=== PATIENT | female | born 1945 ===

== ENCOUNTER → 2017-11-21 | Outpatient (CLI) | payer MEDICARE ==
[~2017-11-21] MED LIST: ACET325 PO; ASPI325 PO; ASPI81CH PO; CEFD300 PO; CLOP75 PO; FISH1000 PO; GABA100 PO; GABA300 PO; HYDCHL25 PO; Humalog100 UNIT/1 SC; INSLIS75I; INSULANPEN SC; LEVEMIR FL100 UNIT/1 SQ; LISI20 PO; METO25ER; PRAV20 PO; TRAACE PO; TRAM50 PO; VITA25000 PO; VITAMIN E100 UNI1 PO; ZESTORETIC 20-121 EA; ZINC15 PO
== END ==
LOC: LAB 17:23 → LAB SHORT 17:23
DX: E11.65 Type 2 diabetes mellitus with hyperglycemia (principal)
CPT/HCPCS: 83036

== ENCOUNTER → 2018-03-04 | Outpatient (CLI) | payer MEDICARE | END | disposition home or self-care (01) | LOC: LAB SHORT 14:09 → PLD 14:09 | DX: C43.72 Malignant melanoma of left lower limb, including hip (principal) | CPT/HCPCS: 88305 ==

== ENCOUNTER → 2018-07-04 | Outpatient (CLI) | payer MEDICARE, OTHER ==
[~2018-07-04] MED LIST changes: +FURO40 PO; +LOSA25 PO; +POTA10T PO; +Percocet 5-3251 EACH PO
== END | disposition home or self-care (01) ==
LOC: LAB SHORT 18:41 → LAB 18:41
DX: Z48.3 Aftercare following surgery for neoplasm (principal); C43.72 Malignant melanoma of left lower limb, including hip
CPT/HCPCS: 87070; 87075; 87205

== ENCOUNTER 2018-07-10 06:17 | Day surgery (SDC) | payer MEDICARE, OTHER ==
[~2018-07-10] VITALS: Ht 162.6 cm; Wt 129.7 kg
[~2018-07-10 06:17] MED LIST changes: -FURO40 PO; -LOSA25 PO; -POTA10T PO; -Percocet 5-3251 EACH PO
--- NOTE | 2018-07-10 06:43 | NUR ---
PT ADMITTED TO [facility]. AGREES WITH PLANNED SURGER. MEDS, ALLERGIES AND HX REVIEWED.
--- NOTE | 2018-07-10 06:53 | NUR ---
LUNG SOUNDS CLEAR. DRESSING IN PLACE TO LEFT LOWER EXTREMEITY, D/I.
--- NOTE | 2018-07-10 10:02 | NUR ---
Discharge instructions reviewed with patient. Patient verbalizes understanding. Copy given to patient to take home. STERI STRIPS X2 PLACES ON RIGHT CHEST C/D/I, WITH VERY SCANT OOZE THAT HAS SCABBED OVER. PT STATES SHOULDER DISCOMFORT IS BETTER NOW AND VERBALIZED READY TO GET DRESSED AND GO HOME. RX GIVEN TO PT/FAMILY. Discharged via wheelchair to private car for ride home.
--- NOTE | 2018-07-10 10:32 | NUR ---
1024- CALLED PT TO INFORM HER TO RESTART HER PLAVIX AND ASA TOMORROW 07/11/[address] BUSTILLOS. PT VERBALIZES UNDERSTANDING.
== END 2018-07-10 10:08 | disposition home or self-care (01) ==
LOC: ORSCMMR 06:17 → ORD 07:30 → ORSCMMR 07:30
PROVIDERS: Surgery
PROC: 0JH60WZ Insertion of Totally Implantable Vascular Access Device into Chest Subcutaneous Tissue and Fascia, Open Approach (ICD-10-PCS; principal; 2018-07-10 07:30)
DX: C43.72 Malignant melanoma of left lower limb, including hip (principal); E11.9 Type 2 diabetes mellitus without complications; E78.5 Hyperlipidemia, unspecified; I10 Essential (primary) hypertension; Z79.82 Long term (current) use of aspirin; Z79.4 Long term (current) use of insulin; Z79.899 Other long term (current) drug therapy
CPT/HCPCS: 77001; 82947; C1788; J0690; J1642; J2250; J2405; J3010; J7120

== ENCOUNTER → 2018-08-05 | Outpatient (CLI) | payer MEDICARE, OTHER ==
[~2018-08-05] MED LIST changes: +FURO40 PO; +LOSA25 PO; +POTA10T PO; +Percocet 5-3251 EACH PO
== END | disposition home or self-care (01) ==
LOC: LAB 14:24 → LAB SHORT 14:24
DX: N39.0 Urinary tract infection, site not specified (principal)
CPT/HCPCS: 87077; 87086; 87186

== ENCOUNTER 2018-08-17 11:40 | Emergency (ER) | payer MEDICARE, OTHER ==
[~2018-08-17] VITALS: Ht 162.6 cm; Wt 129.3 kg
[~2018-08-17 11:40] MED LIST changes: -FURO40 PO; -LOSA25 PO; -POTA10T PO; -Percocet 5-3251 EACH PO
[2018-08-17] MEDS ORDERED: FURO40 PO (12:31)
[2018-08-17] MEDS ORDERED: POTA10T PO (12:31)
[2018-08-17] MEDS ORDERED: LOSA25 PO (12:31)
[2018-08-17 13:18] LABS: BASOPHILS ABSOLUTE AUTO 0.06 K/mm3 (0.00-0.23); BASOPHILS PERCENT AUTO 1 % (0-2); EOSINOPHILS ABSOLUTE AUTO 0.03 K/mm3 (0.00-0.68); EOSINOPHILS PERCENT AUTO 0 % (0-6); Hematocrit 43.1 % (33.0-51.0); Hemoglobin 13.6 g/dL (11.5-16.0); IMMATURE GRAN ABSOLUTE AUTO 0.03 K/mm3 (0.00-0.10); IMMATURE GRAN PERCENT AUTO 0 % (0-1); LYMPHOCYTES ABSOLUTE AUTO 1.89 K/mm3 (0.84-5.20); LYMPHOCYTES PERCENT AUTO 16 % (21-46); MONOCYTES ABSOLUTE AUTO 0.65 K/mm3 (0.16-1.47); MONOCYTES PERCENT AUTO 6 % (4-13); Mean Corpuscular HGB 28.5 pg (26.0-34.0); Mean Corpuscular HGB Conc 31.6 g/dL (31.5-36.5); Mean Corpuscular Volume 90 fL (80-100); Mean Platelet Volume 11.1 fL (9.1-12.4); NEUTROPHILS PERCENT AUTO 77 % (41-73); Platelet Count 194 K/mm3 (150-400); RDW Coefficient Variation 15.3 % (11.7-14.2); RDW Standard Deviation 50.7 fL (35.1-46.3); Red Blood Cell Count 4.77 M/mm3 (3.80-5.20); White Blood Cell Count 11.76 K/mm3 (4.00-11.30)
[2018-08-17 13:43] LABS: Albumin, Blood 3.2 g/dL (3.4-5.0); Bilirubin, Total 0.3 mg/dL (0.1-1.0); Bun/Creatinine Ratio 13.6 (12.0-20.0); Calcium, Blood 8.3 mg/dL (8.5-10.1); Creatinine, Blood 1.32 mg/dL (0.40-1.00); Globulin, Blood 3.1 g/dL (2.2-4.0); Potassium, Blood 3.9 mmol/L (3.5-5.5); Total Protein, Blood 6.3 g/dL (6.4-8.2)
[2018-08-17] MEDS ORDERED: Percocet 5-3251 EACH PO (14:05)
== END 2018-08-17 14:44 | disposition home or self-care (01) ==
LOC: ER 11:40
PROVIDERS: Physician Assistant
DX: S00.83XA Contusion of other part of head, initial encounter (principal); S40.011A Contusion of right shoulder, initial encounter; S80.02XA Contusion of left knee, initial encounter; S80.01XA Contusion of right knee, initial encounter; W19.XXXA Unspecified fall, initial encounter; E11.9 Type 2 diabetes mellitus without complications; I10 Essential (primary) hypertension; Z87.891 Personal history of nicotine dependence; Z79.899 Other long term (current) drug therapy; Z79.82 Long term (current) use of aspirin; Z79.4 Long term (current) use of insulin
CPT/HCPCS: 36415; 70450; 71046; 73030; 73560-LT; 73560-RT; 80053; 85025; 93005; 93010; J2405; J3010

== ENCOUNTER 2018-11-19 10:48 | Observation (INO) | payer MEDICARE, OTHER ==
[~2018-11-19] VITALS: Ht 160 cm; Wt 134.4 kg
[~2018-11-19 10:48] MED LIST changes: +FURO40 PO; -Humalog100 UNIT/1 SC; +LOSA50 PO; +Novolin R100 UNIT/M SC; +POTA10T PO; -PRAV20 PO; +Percocet 5-3251 EACH PO; +Pravachol40 MG PO; +Zithromax250 MG PO
[2018-11-19] MEDS ORDERED: ALBU90OI6 INH (12:03)
[2018-11-19] MEDS ORDERED: Fish Oil Conc1000 MG PO (12:04)
[2018-11-19 12:18] LABS: BASOPHILS ABSOLUTE AUTO 0.04 K/mm3 (0.00-0.23); BASOPHILS PERCENT AUTO 1 % (0-2); EOSINOPHILS ABSOLUTE AUTO 0.11 K/mm3 (0.00-0.68); EOSINOPHILS PERCENT AUTO 1 % (0-6); Hematocrit 43.6 % (33.0-51.0); Hemoglobin 13.6 g/dL (11.5-16.0); IMMATURE GRAN ABSOLUTE AUTO 0.03 K/mm3 (0.00-0.10); IMMATURE GRAN PERCENT AUTO 0 % (0-1); LYMPHOCYTES ABSOLUTE AUTO 2.36 K/mm3 (0.84-5.20); LYMPHOCYTES PERCENT AUTO 31 % (21-46); MONOCYTES ABSOLUTE AUTO 0.69 K/mm3 (0.16-1.47); MONOCYTES PERCENT AUTO 9 % (4-13); Mean Corpuscular HGB 28.8 pg (26.0-34.0); Mean Corpuscular HGB Conc 31.2 g/dL (31.5-36.5); Mean Corpuscular Volume 92 fL (80-100); Mean Platelet Volume 11.1 fL (9.1-12.4); NEUTROPHILS ABSOLUTE AUTO 4.37 K/mm3 (1.96-9.15); NEUTROPHILS PERCENT AUTO 58 % (41-73); Platelet Count 187 K/mm3 (150-400); RDW Coefficient Variation 15.3 % (11.7-14.2); RDW Standard Deviation 51.8 fL (35.1-46.3); Red Blood Cell Count 4.73 M/mm3 (3.80-5.20)
[2018-11-19 12:33] LABS: Alanine Aminotransfer (ALT/SGP 24 U/L (12-78); Albumin, Blood 3.2 g/dL (3.4-5.0); Alk Phos 154 U/L (50-136); Anion Gap 9 mmol/L (6-16); Aspartate Aminotrans (AST/SGOT 29 U/L (12-37); Bilirubin, Total 0.5 mg/dL (0.1-1.0); Blood Urea Nitrogen 13 mg/dL (8-24); CO2, Blood 25 mmol/L (21-32); Calcium, Blood 9.2 mg/dL (8.5-10.1); Chloride, Blood 107 mmol/L (98-108); Globulin, Blood 3.1 g/dL (2.2-4.0); Glomerular Filtration Rate 42 (60-); Glucose, Blood 118 mg/dL (70-99); Potassium, Blood 3.8 mmol/L (3.5-5.5); Sodium, Blood 141 mmol/L (136-145); Total Protein, Blood 6.3 g/dL (6.4-8.2); Troponin I <0.015 ng/mL (0.000-0.040)
[2018-11-19 12:46] LABS: Source, Urine Catheter
[2018-11-19 12:51] LABS: Bilirubin, Urine Neg (Neg); Blood, Urine 2+ (Neg); Glucose Qualitative, Urine Neg (Neg); Ketones, Urine 3+ (Neg); Leukocyte Esterase, Urine 2+ (Neg); Nitrite, Urine Neg (Neg); Protein, Urine 1+ (Neg); Specific Gravity, Urine 1.015 (1.003-1.022); Urobilinogen, Urine NORM (Normal)
[2018-11-19 13:03] LABS: Color, Urine Yellow (P-Yellow)
[2018-11-19 13:04] LABS: Appearance, Urine Hazy (Clear); Bacteria Rare /hpf; Red Blood Cells, Urine 0-2 /hpf (0-2); Squamous Epithelial Cells Few /hpf (Few)
[2018-11-21] MEDS ORDERED: TRAM50 PO (11:33)
[2018-11-21] MEDS ORDERED: MIRT15 PO (11:33)
== END 2018-11-21 17:13 | disposition home health service (06) ==
LOC: ER 10:48 → MEDS 10:49 → ENPENDDIS 11-21 11:24 → MEDS 11-21 17:13
PROVIDERS: Emergency Medicine; ADMIT Hospitalist
DX: R53.1 Weakness (principal); E86.0 Dehydration; C43.72 Malignant melanoma of left lower limb, including hip; E66.01 Morbid (severe) obesity due to excess calories; E78.5 Hyperlipidemia, unspecified; E11.22 Type 2 diabetes mellitus with diabetic chronic kidney disease; I12.9 Hypertensive chronic kidney disease with stage 1 through stage 4 chronic kidney disease, or unspecified chronic kidney disease; N18.3 Chronic kidney disease, stage 3 (moderate); E11.40 Type 2 diabetes mellitus with diabetic neuropathy, unspecified; M19.90 Unspecified osteoarthritis, unspecified site; M54.9 Dorsalgia, unspecified; G89.29 Other chronic pain; Z87.891 Personal history of nicotine dependence; Z79.82 Long term (current) use of aspirin; Z79.02 Long term (current) use of antithrombotics/antiplatelets; Z79.899 Other long term (current) drug therapy; Z68.43 Body mass index [BMI] 50.0-59.9, adult
CPT/HCPCS: 36415; 71046; 80053; 81001; 82947; 83690; 83880; 84443; 84484; 85025; 87086; 93005; 93010; 96360; 96361; 97110; 97162; 97530; 99285-25; J1642; J7030; J7120; P9612

== ENCOUNTER → 2018-11-28 | Outpatient (CLI) | payer MEDICARE, OTHER ==
[~2018-11-28] MED LIST changes: +ALBU90OI6 INH; +Fish Oil Conc1000 MG PO; +MIRT15 PO
== END | disposition home or self-care (01) ==
LOC: LAB SHORT 14:50 → LAB 14:50
DX: N39.0 Urinary tract infection, site not specified (principal)
CPT/HCPCS: 87077; 87086; 87186

== ENCOUNTER 2019-02-10 15:18 | Emergency (ER) | payer MEDICARE, OTHER ==
[~2019-02-10] VITALS: Ht 162.6 cm; Wt 129.3 kg
[~2019-02-10 15:18] MED LIST changes: -CLOP75 PO; -LOSA50 PO
[2019-02-10 15:39] LABS: BASOPHILS ABSOLUTE AUTO 0.07 K/mm3 (0.00-0.23); BASOPHILS PERCENT AUTO 1 % (0-2); EOSINOPHILS ABSOLUTE AUTO 0.17 K/mm3 (0.00-0.68); EOSINOPHILS PERCENT AUTO 2 % (0-6); Hematocrit 40.2 % (33.0-51.0); Hemoglobin 12.9 g/dL (11.5-16.0); IMMATURE GRAN ABSOLUTE AUTO 0.03 K/mm3 (0.00-0.10); IMMATURE GRAN PERCENT AUTO 0 % (0-1); LYMPHOCYTES ABSOLUTE AUTO 3.79 K/mm3 (0.84-5.20); LYMPHOCYTES PERCENT AUTO 40 % (21-46); MONOCYTES ABSOLUTE AUTO 0.75 K/mm3 (0.16-1.47); MONOCYTES PERCENT AUTO 8 % (4-13); Mean Corpuscular HGB 29.7 pg (26.0-34.0); Mean Corpuscular HGB Conc 32.1 g/dL (31.5-36.5); Mean Corpuscular Volume 92 fL (80-100); Mean Platelet Volume 11.2 fL (9.1-12.4); NEUTROPHILS ABSOLUTE AUTO 4.72 K/mm3 (1.96-9.15); NEUTROPHILS PERCENT AUTO 50 % (41-73); Platelet Count 176 K/mm3 (150-400); RDW Coefficient Variation 14.6 % (11.7-14.2); RDW Standard Deviation 49.9 fL (35.1-46.3); Red Blood Cell Count 4.35 M/mm3 (3.80-5.20); White Blood Cell Count 9.53 K/mm3 (4.00-11.30)
[2019-02-10 15:55] LABS: Bilirubin, Total 0.4 mg/dL (0.1-1.0); Bun/Creatinine Ratio 7.7 (12.0-20.0); Calcium, Blood 9.4 mg/dL (8.5-10.1); Creatinine, Blood 1.56 mg/dL (0.40-1.00); Globulin, Blood 3.1 g/dL (2.2-4.0); Potassium, Blood 3.9 mmol/L (3.5-5.5); Total Protein, Blood 6.1 g/dL (6.4-8.2)
== END 2019-02-10 18:14 | disposition home or self-care (01) ==
LOC: ER 15:18 → MEDS 16:10 → ER 18:14
PROVIDERS: Physician Assistant
DX: N95.0 Postmenopausal bleeding (principal); Z79.899 Other long term (current) drug therapy; Z79.82 Long term (current) use of aspirin; Z79.4 Long term (current) use of insulin; E11.9 Type 2 diabetes mellitus without complications; I10 Essential (primary) hypertension; Z87.891 Personal history of nicotine dependence
CPT/HCPCS: 36415; 74176; 80053; 85025; 99284-25

== ENCOUNTER → 2019-02-21 | Outpatient (CLI) | payer MEDICARE ==
[~2019-02-21] MED LIST changes: +AZIT250 PO; +BISA10S PR; +Bactrim Ds Tab1 EACH PO; +Bumetanide1 MG PO; +CLOP75 PO; +CVS DISPOSABLE399 ML PR; +DOK100 MG PO; +FAMO20 PO; +FLUC150A PO; +GABA300; +Humalog100 UNIT/3 SC; +LEVFLO500 PO; +LOSA25 PO; +LOSA50 PO; +LOSARTAN POTASS50 MG PO; +Loperamide2 MG PO; +Nystatin15 GM TOP; +OMEP20ER PO; +PROM25 PO; +Pedi-Dri 100,0060 GM TOP; +Phillips'400 MG/5 M PO; +Potassium Chlo20 ME1 PO; +Prozac20 MG PO; +SENN187 PO; +TYLENOL325 MG PO; +Ultram50 MG PO; +VENL75ER PO; +VENLAFAXINE HCL75 MG PO; +Ventolin/Prove6.7 GM INH
[2019-02-21 11:12] LABS: Source, Urine Clean Catch
[2019-02-21 14:41] LABS: Appearance, Urine Hazy (Clear); Bilirubin, Urine Neg (Neg); Blood, Urine Neg (Neg); Color, Urine Yellow (P-Yellow); Glucose Qualitative, Urine Neg (Neg); Ketones, Urine Neg (Neg); Leukocyte Esterase, Urine 2+ (Neg); Nitrite, Urine Neg (Neg); Protein, Urine Neg (Neg); Specific Gravity, Urine 1.015 (1.003-1.022); Urobilinogen, Urine NORM (Normal)
[2019-02-21 15:30] LABS: Bacteria Few /hpf; Calcium Oxalate Crystals Many /hpf; Red Blood Cells, Urine 0-2 /hpf (0-2); Squamous Epithelial Cells Mod /hpf (Few)
== END | disposition home or self-care (01) ==
LOC: LAB SHORT 11:10 → LAB 11:10
PROVIDERS: Hospitalist
DX: R30.0 Dysuria (principal)
CPT/HCPCS: 81001; 87077; 87086; 87186

== ENCOUNTER 2019-02-23 14:17 | Emergency (ER) | payer MEDICARE, OTHER ==
[~2019-02-23] VITALS: Ht 162.6 cm; Wt 127.0 kg
[~2019-02-23 14:17] MED LIST changes: -AZIT250 PO; -BISA10S PR; -Bactrim Ds Tab1 EACH PO; -Bumetanide1 MG PO; -CLOP75 PO; -CVS DISPOSABLE399 ML PR; -DOK100 MG PO; -FAMO20 PO; -FLUC150A PO; -GABA300; -Humalog100 UNIT/3 SC; -LEVFLO500 PO; -LOSA25 PO; -LOSA50 PO; -LOSARTAN POTASS50 MG PO; -Loperamide2 MG PO; -Nystatin15 GM TOP; -OMEP20ER PO; -PROM25 PO; -Pedi-Dri 100,0060 GM TOP; -Phillips'400 MG/5 M PO; -Potassium Chlo20 ME1 PO; -Prozac20 MG PO; -SENN187 PO; -TYLENOL325 MG PO; -Ultram50 MG PO; -VENL75ER PO; -VENLAFAXINE HCL75 MG PO; -Ventolin/Prove6.7 GM INH
[2019-02-23 14:54] LABS: BASOPHILS ABSOLUTE AUTO 0.07 K/mm3 (0.00-0.23); BASOPHILS PERCENT AUTO 1 % (0-2); EOSINOPHILS ABSOLUTE AUTO 0.14 K/mm3 (0.00-0.68); EOSINOPHILS PERCENT AUTO 1 % (0-6); Hematocrit 40.6 % (33.0-51.0); Hemoglobin 13.2 g/dL (11.5-16.0); IMMATURE GRAN ABSOLUTE AUTO 0.02 K/mm3 (0.00-0.10); IMMATURE GRAN PERCENT AUTO 0 % (0-1); LYMPHOCYTES PERCENT AUTO 27 % (21-46); MONOCYTES ABSOLUTE AUTO 1.06 K/mm3 (0.16-1.47); MONOCYTES PERCENT AUTO 9 % (4-13); Mean Corpuscular HGB 29.7 pg (26.0-34.0); Mean Corpuscular HGB Conc 32.5 g/dL (31.5-36.5); Mean Corpuscular Volume 91 fL (80-100); Mean Platelet Volume 11.1 fL (9.1-12.4); NEUTROPHILS PERCENT AUTO 62 % (41-73); Platelet Count 213 K/mm3 (150-400); RDW Coefficient Variation 15.6 % (11.7-14.2); RDW Standard Deviation 52.3 fL (35.1-46.3); Red Blood Cell Count 4.45 M/mm3 (3.80-5.20); White Blood Cell Count 11.69 K/mm3 (4.00-11.30)
[2019-02-23 15:12] LABS: Albumin, Blood 2.7 g/dL (3.4-5.0); Albumin/Globulin Ratio 0.8 (0.8-1.8); Bilirubin, Total 0.6 mg/dL (0.1-1.0); Bun/Creatinine Ratio 7.7 (12.0-20.0); Calcium, Blood 9.4 mg/dL (8.5-10.1); Creatinine, Blood 1.94 mg/dL (0.40-1.00); Globulin, Blood 3.2 g/dL (2.2-4.0); Potassium, Blood 4.1 mmol/L (3.5-5.5); Total Protein, Blood 5.9 g/dL (6.4-8.2)
[2019-02-23] MEDS ORDERED: PROM25 PO (19:36)
== END 2019-02-23 20:25 | disposition home or self-care (01) ==
LOC: ER 14:17
PROVIDERS: Emergency Medicine
DX: N39.0 Urinary tract infection, site not specified (principal); E86.0 Dehydration; R53.81 Other malaise; F32.9 Major depressive disorder, single episode, unspecified; E66.9 Obesity, unspecified; Z68.42 Body mass index [BMI] 45.0-49.9, adult; E11.9 Type 2 diabetes mellitus without complications; I10 Essential (primary) hypertension; Z87.891 Personal history of nicotine dependence; Z85.820 Personal history of malignant melanoma of skin; Z79.899 Other long term (current) drug therapy; Z79.02 Long term (current) use of antithrombotics/antiplatelets; Z79.4 Long term (current) use of insulin; Z79.82 Long term (current) use of aspirin
CPT/HCPCS: 36415; 51798; 74176; 80053; 83690; 85025; 93005; 93010; 96361; 96365; 96366; 99285-25; J0696; J7030

== ENCOUNTER 2019-02-28 18:17 | Inpatient (IN) | payer MEDICARE, OTHER ==
[~2019-02-28] VITALS: Ht 163 cm; Wt 123.1 kg
[~2019-02-28 18:17] MED LIST changes: +PROM25 PO
[2019-02-28 19:11] LABS: Source, Urine Clean Catch
[2019-02-28 19:12] LABS: BASOPHILS ABSOLUTE AUTO 0.03 K/mm3 (0.00-0.23); BASOPHILS PERCENT AUTO 0 % (0-2); EOSINOPHILS ABSOLUTE AUTO 0.11 K/mm3 (0.00-0.68); EOSINOPHILS PERCENT AUTO 1 % (0-6); Hematocrit 36.3 % (33.0-51.0); Hemoglobin 11.6 g/dL (11.5-16.0); IMMATURE GRAN ABSOLUTE AUTO 0.03 K/mm3 (0.00-0.10); IMMATURE GRAN PERCENT AUTO 0 % (0-1); LYMPHOCYTES ABSOLUTE AUTO 2.05 K/mm3 (0.84-5.20); LYMPHOCYTES PERCENT AUTO 26 % (21-46); MONOCYTES ABSOLUTE AUTO 0.94 K/mm3 (0.16-1.47); MONOCYTES PERCENT AUTO 12 % (4-13); Mean Corpuscular HGB 29.5 pg (26.0-34.0); Mean Corpuscular Volume 92 fL (80-100); Mean Platelet Volume 11.2 fL (9.1-12.4); NEUTROPHILS ABSOLUTE AUTO 4.89 K/mm3 (1.96-9.15); NEUTROPHILS PERCENT AUTO 61 % (41-73); Platelet Count 191 K/mm3 (150-400); RDW Coefficient Variation 15.4 % (11.7-14.2); RDW Standard Deviation 52.6 fL (35.1-46.3); Red Blood Cell Count 3.93 M/mm3 (3.80-5.20); White Blood Cell Count 8.05 K/mm3 (4.00-11.30)
[2019-02-28 19:16] LABS: Bilirubin, Urine Neg (Neg); Blood, Urine Neg (Neg); Glucose Qualitative, Urine Neg (Neg); Ketones, Urine 1+ (Neg); Leukocyte Esterase, Urine 1+ (Neg); Nitrite, Urine Neg (Neg); Protein, Urine 2+ (Neg); Urobilinogen, Urine NORM (Normal)
[2019-02-28 19:23] LABS: Appearance, Urine Hazy (Clear); Color, Urine Yellow (P-Yellow)
[2019-02-28 19:24] LABS: Amorphous Mod (0-Heavy); Bacteria Mod /hpf; Mucus Light (0-Heavy); Red Blood Cells, Urine Not Seen /hpf (0-2); Squamous Epithelial Cells Rare /hpf (Few); White Blood Cells, Urine 0-2 /hpf (0-5)
[2019-02-28 19:31] LABS: Alanine Aminotransfer (ALT/SGP 14 U/L (12-78); Albumin, Blood 2.5 g/dL (3.4-5.0); Albumin/Globulin Ratio 0.9 (0.8-1.8); Alk Phos 98 U/L (50-136); Anion Gap 9 mmol/L (6-16); Aspartate Aminotrans (AST/SGOT 24 U/L (12-37); Bilirubin, Total 0.5 mg/dL (0.1-1.0); Blood Urea Nitrogen 15 mg/dL (8-24); Bun/Creatinine Ratio 4.7 (12.0-20.0); CO2, Blood 27 mmol/L (21-32); Calcium, Blood 8.8 mg/dL (8.5-10.1); Chloride, Blood 98 mmol/L (98-108); Creatinine, Blood 3.18 mg/dL (0.40-1.00); Globulin, Blood 2.7 g/dL (2.2-4.0); Glomerular Filtration Rate 15 (60-); Glucose, Blood 123 mg/dL (70-99); Magnesium, Blood 2.3 mg/dL (1.6-2.4); Potassium, Blood 4.2 mmol/L (3.5-5.5); Sodium, Blood 134 mmol/L (136-145); Total Protein, Blood 5.2 g/dL (6.4-8.2); Troponin I <0.015 ng/mL (0.000-0.040)
[2019-02-28 20:27] LABS: PCO2 Arterial 44.3 mmHg (35-45); PO2 Arterial 106 mmHg (80-100); pH Blood Arterial 7.36 (7.35-7.45)
[2019-02-28] MEDS ORDERED: Bumetanide1 MG PO (20:54)
[2019-02-28] MEDS ORDERED: VENLAFAXINE HCL75 MG PO (20:54)
[2019-02-28] MEDS ORDERED: Potassium Chlo20 ME1 PO (20:55)
[2019-02-28] MEDS ORDERED: LOSA50 PO (20:57)
[2019-02-28] MEDS ORDERED: Novolin R100 UNIT/M SC (21:16)
[2019-03-01 05:35] LABS: BASOPHILS ABSOLUTE AUTO 0.03 K/mm3 (0.00-0.23); BASOPHILS PERCENT AUTO 1 % (0-2); EOSINOPHILS ABSOLUTE AUTO 0.15 K/mm3 (0.00-0.68); EOSINOPHILS PERCENT AUTO 2 % (0-6); Hemoglobin 11.1 g/dL (11.5-16.0); IMMATURE GRAN ABSOLUTE AUTO 0.04 K/mm3 (0.00-0.10); IMMATURE GRAN PERCENT AUTO 1 % (0-1); LYMPHOCYTES ABSOLUTE AUTO 1.83 K/mm3 (0.84-5.20); LYMPHOCYTES PERCENT AUTO 28 % (21-46); MONOCYTES ABSOLUTE AUTO 0.73 K/mm3 (0.16-1.47); MONOCYTES PERCENT AUTO 11 % (4-13); Mean Corpuscular HGB 28.8 pg (26.0-34.0); Mean Corpuscular HGB Conc 31.7 g/dL (31.5-36.5); Mean Corpuscular Volume 91 fL (80-100); NEUTROPHILS ABSOLUTE AUTO 3.78 K/mm3 (1.96-9.15); NEUTROPHILS PERCENT AUTO 58 % (41-73); Platelet Count 176 K/mm3 (150-400); RDW Coefficient Variation 15.6 % (11.7-14.2); RDW Standard Deviation 51.8 fL (35.1-46.3); Red Blood Cell Count 3.85 M/mm3 (3.80-5.20); White Blood Cell Count 6.56 K/mm3 (4.00-11.30)
[2019-03-01 05:59] LABS: Bun/Creatinine Ratio 4.6 (12.0-20.0); Calcium, Blood 8.6 mg/dL (8.5-10.1); Creatinine, Blood 3.26 mg/dL (0.40-1.00); Potassium, Blood 4.3 mmol/L (3.5-5.5)
--- NOTE | 2019-03-01 06:18 | NUR ---
SHIFT SUMMARY PT NEW ADMIT FROM ER TONIGHT. ARRIVED TO UNIT VIA STRETCHER, SLIDE TRANSFER WITH 4 STAFF REQUIRED. PT AND FAMILY REPORTS RECENT WEAKNESS AND FALLS AT HOME, HOME HEALTH RN SENT PT TO ER FOR HYPOTENSION. HOWEVER, BP HAS BEEN STABLE HERE. PT SENT UP ON 3L VIA NC, WEENED DOWN TO 1L VIA NC THIS AM. BASELINE RA. CBG 112 TONIGHT, LANTUS HELD. PT REPORTS POOR APPETITE AND RECENT "SIGNIFCANT" WEIGHT LOSS, GOES DAYS AT A TIME WITHOUT EATING. DIETARY CONSULT. PT FAMILY REPORTS THEY ARE UNABLE TO TAKE CARE OF PT AND NEED ASSISTANCE WITH PLACEMENT. SS CONSULT, PALLIATIVE CARE CONSULT. PT REPORTS SHE HAS BEEN UNABLE TO WALK FOR A FEW DAYS, "LEGS TURN TO MUSH WHEN I TRY TO GET UP AND I JUST FALL", PT/OT EVAL IS ORDERED. SCHNEIDER CATH IN PLACE IS PATENT AND DRAINING, PLACED BY MUSEUM EDUCATOR. NS RUNNING @ 75 ML/HR. WILL CONT TO MONITOR AND PROVIDE CARE UNTIL PRESUMED BY ONCOMING RN.
--- NOTE | 2019-03-01 18:40 | NUR ---
NO ACUTE CHANGES TO PATIENT. WAITING FOR PLACEMENT. PATIENT IS FRIENDLY WITH STAFF AND COOPERATIVE WITH ALL CARES. TRANSFERRED TO LIFT ROOM. HAS BEEN AT BEDSIDE THROUGH OUT THE DAY. REMAINS ON 1 L O2. CALL LIGHT WITHIN REACH.
--- NOTE | 2019-03-02 06:57 | NUR ---
SHIFT SUMMARY PT SLEPT T/O NIGHT. SCHNEIDER DRAINING. SO AT BEDSIDE T/O NIGHT. 1L O2 NC. CALL LIGHT IN REACH.
[2019-03-02 07:52] LABS: BASOPHILS ABSOLUTE AUTO 0.04 K/mm3 (0.00-0.23); BASOPHILS PERCENT AUTO 1 % (0-2); EOSINOPHILS PERCENT AUTO 3 % (0-6); Hematocrit 35.5 % (33.0-51.0); Hemoglobin 11.3 g/dL (11.5-16.0); IMMATURE GRAN ABSOLUTE AUTO 0.03 K/mm3 (0.00-0.10); IMMATURE GRAN PERCENT AUTO 0 % (0-1); LYMPHOCYTES ABSOLUTE AUTO 1.59 K/mm3 (0.84-5.20); LYMPHOCYTES PERCENT AUTO 22 % (21-46); MONOCYTES ABSOLUTE AUTO 0.81 K/mm3 (0.16-1.47); MONOCYTES PERCENT AUTO 11 % (4-13); Mean Corpuscular HGB 29.1 pg (26.0-34.0); Mean Corpuscular HGB Conc 31.8 g/dL (31.5-36.5); Mean Corpuscular Volume 92 fL (80-100); Mean Platelet Volume 10.6 fL (9.1-12.4); NEUTROPHILS ABSOLUTE AUTO 4.52 K/mm3 (1.96-9.15); NEUTROPHILS PERCENT AUTO 63 % (41-73); Platelet Count 189 K/mm3 (150-400); RDW Coefficient Variation 15.7 % (11.7-14.2); RDW Standard Deviation 52.6 fL (35.1-46.3); Red Blood Cell Count 3.88 M/mm3 (3.80-5.20); White Blood Cell Count 7.19 K/mm3 (4.00-11.30)
[2019-03-02 08:07] LABS: Bun/Creatinine Ratio 5.1 (12.0-20.0); Calcium, Blood 8.4 mg/dL (8.5-10.1); Creatinine, Blood 2.95 mg/dL (0.40-1.00); Potassium, Blood 4.2 mmol/L (3.5-5.5)
--- NOTE | 2019-03-02 15:19 | NUR ---
PATIENTS PORT WAS ACCESSED AND DEACCESSED FOR MONTHLY CLEANING PER PATIENT REQUEST AND DOCTOR ORDER. TOLERATED WELL .
--- NOTE | 2019-03-02 17:51 | NUR ---
PATIENTS FAMILY TALKED WITH NURSE THIS SHIFT AND EXPRESSED CONCERN THAT PATENT WAS "GIVING UP" AND IS DEPRESSED. SHE HAS APPEARED MORE CONFUSED AND OUT OF IT ACCOURDING TO THE PATIENTS FAMILY. THEY STATED SHE HAS BEEN "SEEING AND TALKING TO PEOPLE THAT ARENT HERE" THROUGH OUT THE SHIFT. THIS NURSE HAS NOT SEEN THIS BEHAVIOR BUT HAS NOTICED SHE IS MORE FLAT AFFECTED THAN THE PREVIOUS DAY. SHE IS RECEIVING ABX DAILY. PATIENT CONTINUES TO NEED TO BE ENCOURAGED TO EAT AND EVEN THEN OFTEN EATS ONLY VERY SMALL AMOUNTS. THIS NURSE HAS ENCOURAGED THE PATIENT TO EAT TO REGAIN HER STRENGTH NEEDED FOR HER REHAB. PATIENT HAS HAD NO COMPLAINTS OF PAIN, SOB, OR NVD.
--- NOTE | 2019-03-03 04:04 | NUR ---
03/03/19 0410 PT SLEEPING WELL WITH ARNOLDBA IN LOUNGE CHAIR NEXT TO HER. VITALS STABLE. AT BEGINNING OF SHIFT, AND PT UNHAPPY WITH "ALL THESE INTERUPTIONS" WHEN SHE IS SLEEPING. VOICED HIS FRUSTRATION AND REQUESTED LESS INTERUPTIONS DURING NIGHT. THUS PT NOT TURNED Q 2 HOURS TO ALLOW FOR MORE REST/SLEEP.
[2019-03-03 05:01] LABS: BASOPHILS ABSOLUTE AUTO 0.05 K/mm3 (0.00-0.23); BASOPHILS PERCENT AUTO 1 % (0-2); EOSINOPHILS ABSOLUTE AUTO 0.22 K/mm3 (0.00-0.68); EOSINOPHILS PERCENT AUTO 2 % (0-6); Hematocrit 34.8 % (33.0-51.0); Hemoglobin 11.3 g/dL (11.5-16.0); IMMATURE GRAN ABSOLUTE AUTO 0.03 K/mm3 (0.00-0.10); IMMATURE GRAN PERCENT AUTO 0 % (0-1); LYMPHOCYTES ABSOLUTE AUTO 1.95 K/mm3 (0.84-5.20); LYMPHOCYTES PERCENT AUTO 22 % (21-46); MONOCYTES ABSOLUTE AUTO 1.05 K/mm3 (0.16-1.47); MONOCYTES PERCENT AUTO 12 % (4-13); Mean Corpuscular HGB 29.1 pg (26.0-34.0); Mean Corpuscular HGB Conc 32.5 g/dL (31.5-36.5); Mean Corpuscular Volume 90 fL (80-100); Mean Platelet Volume 10.7 fL (9.1-12.4); NEUTROPHILS ABSOLUTE AUTO 5.79 K/mm3 (1.96-9.15); NEUTROPHILS PERCENT AUTO 64 % (41-73); Platelet Count 191 K/mm3 (150-400); RDW Coefficient Variation 15.5 % (11.7-14.2); RDW Standard Deviation 51.2 fL (35.1-46.3); Red Blood Cell Count 3.88 M/mm3 (3.80-5.20); White Blood Cell Count 9.09 K/mm3 (4.00-11.30)
[2019-03-03 05:39] LABS: Bun/Creatinine Ratio 5.1 (12.0-20.0); Calcium, Blood 8.3 mg/dL (8.5-10.1); Creatinine, Blood 2.97 mg/dL (0.40-1.00); Potassium, Blood 4.2 mmol/L (3.5-5.5)
--- NOTE | 2019-03-03 13:55 | NUR ---
LIFT PT UP TO THE CHAIR FOR LUNCH USING THE LIFT, PT UP IN THE CHAIR FOR ABOUT AN HOUR AND A HALF, NOW BACK IN THE BED USING THE LIFT
--- NOTE | 2019-03-03 15:07 | NUR ---
R KNEE PAIN PT C/O R KNEE PAIN AFTER WORKING WITH THERAPY, SPOKE WITH DR HEATH ABOUT IT, TYLENOL GIVEN, WILL CONT TO MONITOR
--- NOTE | 2019-03-03 17:05 | NUR ---
SUMMARY PT RESTING IN BED, SPOUSE AT THE BEDSIDE, PT HAS WORKED WITH PT/OT TODAY, PT HAS BEEN UP TO THE CHAIR WITH THE LIFT, PT SLEEPS WHEN LEFT ALONE, MED PER EMAR FOR R KNEE PAIN, POSSIBLE PLAN TO DC TO SNF TOMORROW, FAMILY IS AWARE, VSS, NO ACUTE CHANGES, WILL CONT TO MONITOR
--- NOTE | 2019-03-03 18:33 | NUR ---
Clinical Visit: Pt sleeps through visit. She doesn't stir with voice cue, and sancho doesn't want this RN to wake her. Spoke to Keith, pt's . He reports lack of appetite lately, although, previous palliative notes indicate that this was an issue in October of this year. He reports that she had a fall on Sunday and before this, she was eating better. Pt unable to walk, per Keith. She manages her own medications at home. He states that he is concerned about her medications and this was reviewed. He states that he is going to "make sure" she takes her Remeron tonight so that she will have a better night's rest. Attempted advance care planning. He states that he doesn't want to talk about anything other than pt getting better. He states, "I won't even think about that and I don't want to talk about it," [pt not recovering or not getting better.] Pt has 4 daughters and one son. One of the daughters lives here locally. He has children also, but their children are from different marriages. Will remain available. Keith does not display knowledge of pt's multiple health problems.
[2019-03-04 05:18] LABS: Bun/Creatinine Ratio 5.6 (12.0-20.0); Calcium, Blood 8.5 mg/dL (8.5-10.1); Creatinine, Blood 2.68 mg/dL (0.40-1.00); Potassium, Blood 3.9 mmol/L (3.5-5.5)
--- NOTE | 2019-03-04 07:53 | NUR ---
SHIFT SUMMARY: PATIENT RESTED WELL WITH SOME PAIN BUT HER FAMILY WANTS HER TO HAVE AN XRAY OF THE RIGHT KNEE WHERE SHE FELL AT HOME ALSO THEY NEED AN ORDER FOR VASELINE TO APPLY TO THE HEELING WOUND ON HER LLE. THEY SAID THE DR INSTRUCTED THEM TO USE VASELINE. PASSED THIS INFO TO THE DAY NURSE. BOTTOM LOOKS PINK WITH A SMALL HEALING AREA PEA SIZED ON THE TAIL BONE.
[2019-03-04] MEDS ORDERED: AZIT250 PO (10:52)
--- NOTE | 2019-03-04 11:04 | NUR ---
PT NOTED TO NOT HAVE A BM SINCE 02/24, PT WITH DECREASED MOBILITY AND VERY POOR APETITE. COLACE, SENNA, AND MOM GIVEN THUS FAR. SPOKE WITH DR HEATH WHO HAS ORDERED A FLEETS ENEMA NOW.
--- NOTE | 2019-03-04 11:04 | NUR ---
DR REES TO SEE PT, SPOKE WITH DR HEATH NO CONSULT PLACED FOR CABRERA AT THIS TIME. DR REES DID NOT SEE PT.
--- NOTE | 2019-03-04 11:11 | NUR ---
PT DAUGHTER AND SPOUSE AT BEDSIDE VOICING FRUSTRATION WITH PT'S OVERALL STATUS. THEY REPORT PT HAS BEEN SLEEPING AND LETHARGIC FOR THE PAST 2 MONTHS AND FEELS THAT NO ONE IS DOING ANYTING ABOUT IT. PT HAS VERY POOR APETITE AND NOT EATING AND HASNT BEEN PER FAMILY. CARE MANAGEMENT CAME IN AND GAVE A LIST OF PROVIDERS IN THE AREA ACCEPTING NEW PT'S. FAMILY WAS ALSO GIVEN A LIST OF RESOURCES IN THE AREA THEY ARE CONCERNED ABOUT HOW TO GET HER TO MEDICAL APPOINTMENTS.
--- NOTE | 2019-03-04 12:43 | NUR ---
PRN ENEMA GIVEN FOR NO BM. PT HAD RESULTS OF LIQUID STOOL WITH A SMALL HARD BM.
--- NOTE | 2019-03-04 12:48 | NUR ---
PT STARTED COUGHING WITH A SIP OF WATER WHILE IN BED. PT ABLE TO COUGH UP SOME OF THE WATER. SATS 91% ON RA. LUNGS CLEARED AFTER COUGHING MULTIPLE TIMES. WILL CONT TO MONITOR. NO DISTRESS NOTED.
--- NOTE | 2019-03-04 13:32 | NUR ---
DR HEATH CALLED FOR AN UPDATE, NOTIFIED HER OF SMALL BM POST ENEMA. PT TO D/C TO [facility] AT 1400. DR ALSO NOTIFIED OF PT COUGHING WHILE DRINKING WATER, PER DR HEATH PT NEEDS TO BE STRICT ASPIRATION PRECAUTIONS. PT IS DC'ING AT 1400. SCHNEIDER CATHETER TO STAY IN PLACE PER DR HEATH AND BLADDER TRAINING TO BE COMPLETED THERE.
--- NOTE | 2019-03-04 13:44 | NUR ---
REPORT CALLED TO EBEN AT [facility]. IV DC'D INTACT. PT NEEDS LOTS OF MOTIVATION AND ENCOURAGEMENT. I TRIED TO GET PT TO EAT MULTIPLE TIMES THIS SHIFT WELL FAMILY AND PT WOULD ONLY TAKE BITES, OFFERED DIFFERENT FOODS AND PT CONT TO REFUSE MEALS.
--- NOTE | 2019-03-04 14:09 | NUR ---
PT DC'D TO [facility] VIA [facility] W/C. DC'D AT 7738. SPOUSE AT BEDSIDE.
== END 2019-03-04 14:07 | disposition home or self-care (01) | DRG 682 ==
LOC: ER 18:17 → MEDS 20:59
PROVIDERS: Emergency Medicine; ADMIT Hospitalist
DX: N17.9 Acute kidney failure, unspecified (principal); J18.9 Pneumonia, unspecified organism; E87.1 Hypo-osmolality and hyponatremia; F33.1 Major depressive disorder, recurrent, moderate; Z68.43 Body mass index [BMI] 50.0-59.9, adult; Z79.82 Long term (current) use of aspirin; Z87.891 Personal history of nicotine dependence; E66.01 Morbid (severe) obesity due to excess calories; K59.00 Constipation, unspecified; R33.9 Retention of urine, unspecified; E78.5 Hyperlipidemia, unspecified; M19.90 Unspecified osteoarthritis, unspecified site; E11.40 Type 2 diabetes mellitus with diabetic neuropathy, unspecified; C43.70 Malignant melanoma of unspecified lower limb, including hip; E11.22 Type 2 diabetes mellitus with diabetic chronic kidney disease; B95.62 Methicillin resistant Staphylococcus aureus infection as the cause of diseases classified elsewhere; N18.3 Chronic kidney disease, stage 3 (moderate); I12.9 Hypertensive chronic kidney disease with stage 1 through stage 4 chronic kidney disease, or unspecified chronic kidney disease; Z79.4 Long term (current) use of insulin
CPT/HCPCS: 36415; 36600; 51702; 71046; 73562-RT; 80048; 80053; 81001; 82803; 82947; 83605; 83735; 83880; 84145; 84484; 85025; 87040; 87086; 93005; 93010; 94760; 96360-59; 97110; 97162; 97530; 99285-25; A9270; J0696; J1642; J7030

== ENCOUNTER 2019-03-09 15:35 | Inpatient (IN) | payer MEDICARE ==
[~2019-03-09] VITALS: Ht 162.6 cm; Wt 127.0 kg
[~2019-03-09 15:35] MED LIST changes: +AZIT250 PO; +Bumetanide1 MG PO; +LOSA50 PO; +Potassium Chlo20 ME1 PO; +VENLAFAXINE HCL75 MG PO
[2019-03-09 16:16] LABS: BASOPHILS ABSOLUTE AUTO 0.05 K/mm3 (0.00-0.23); BASOPHILS PERCENT AUTO 0 % (0-2); EOSINOPHILS ABSOLUTE AUTO 0.19 K/mm3 (0.00-0.68); EOSINOPHILS PERCENT AUTO 2 % (0-6); Hematocrit 32.8 % (33.0-51.0); Hemoglobin 10.7 g/dL (11.5-16.0); IMMATURE GRAN ABSOLUTE AUTO 0.03 K/mm3 (0.00-0.10); IMMATURE GRAN PERCENT AUTO 0 % (0-1); LYMPHOCYTES ABSOLUTE AUTO 2.63 K/mm3 (0.84-5.20); LYMPHOCYTES PERCENT AUTO 23 % (21-46); MONOCYTES ABSOLUTE AUTO 1.07 K/mm3 (0.16-1.47); MONOCYTES PERCENT AUTO 9 % (4-13); Mean Corpuscular HGB 29.6 pg (26.0-34.0); Mean Corpuscular HGB Conc 32.6 g/dL (31.5-36.5); Mean Corpuscular Volume 91 fL (80-100); Mean Platelet Volume 10.4 fL (9.1-12.4); NEUTROPHILS PERCENT AUTO 65 % (41-73); Platelet Count 264 K/mm3 (150-400); RDW Coefficient Variation 15.5 % (11.7-14.2); RDW Standard Deviation 51.7 fL (35.1-46.3); Red Blood Cell Count 3.62 M/mm3 (3.80-5.20); White Blood Cell Count 11.47 K/mm3 (4.00-11.30)
[2019-03-09 16:29] LABS: Albumin/Globulin Ratio 0.6 (0.8-1.8); Bilirubin, Total 0.4 mg/dL (0.1-1.0); Calcium, Blood 8.3 mg/dL (8.5-10.1); Creatinine, Blood 1.99 mg/dL (0.40-1.00); Globulin, Blood 3.1 g/dL (2.2-4.0); Potassium, Blood 3.6 mmol/L (3.5-5.5); Total Protein, Blood 5.1 g/dL (6.4-8.2)
[2019-03-09 16:37] LABS: Source, Urine Catheter
[2019-03-09 16:47] LABS: Bilirubin, Urine Neg (Neg); Blood, Urine 3+ (Neg); Glucose Qualitative, Urine Neg (Neg); Ketones, Urine Neg (Neg); Leukocyte Esterase, Urine 3+ (Neg); Nitrite, Urine Neg (Neg); Protein, Urine 1+ (Neg); Urobilinogen, Urine NORM (Normal)
[2019-03-09 17:14] LABS: Appearance, Urine Hazy (Clear); Color, Urine Yellow (P-Yellow)
[2019-03-09] MEDS ORDERED: Ultram50 MG PO (17:16)
[2019-03-09 17:17] LABS: White Blood Cells, Urine 25-50 /hpf (0-5)
[2019-03-09] MEDS ORDERED: INSULANPEN SC (17:18)
[2019-03-09 17:19] LABS: Bacteria Mod /hpf; Red Blood Cells, Urine Not Seen /hpf (0-2); Squamous Epithelial Cells Few /hpf (Few); Yeast/Fungi Urine Mod /hpf
[2019-03-09] MEDS ORDERED: OMEP20ER PO (17:19)
[2019-03-09] MEDS ORDERED: Nystatin15 GM TOP (17:19)
[2019-03-09] MEDS ORDERED: DOK100 MG PO (17:19)
[2019-03-09] MEDS ORDERED: Prozac20 MG PO (17:19)
[2019-03-09] MEDS ORDERED: VENL75ER PO (17:20)
[2019-03-09] MEDS ORDERED: Bumetanide1 MG PO (17:21)
[2019-03-09] MEDS ORDERED: GABA300 PO (17:23)
[2019-03-09] MEDS ORDERED: LOSARTAN POTASS50 MG PO (17:24)
[2019-03-09] MEDS ORDERED: Potassium Chlo20 ME1 PO (17:24)
[2019-03-09] MEDS ORDERED: CLOP75 PO (17:41)
[2019-03-09] MEDS ORDERED: BISA10S PR (17:42)
[2019-03-09] MEDS ORDERED: Humalog100 UNIT/3 SC (17:44)
[2019-03-09] MEDS ORDERED: Phillips'400 MG/5 M PO (17:46)
[2019-03-09] MEDS ORDERED: MIRT15 PO (17:46)
[2019-03-09] MEDS ORDERED: SENN187 PO (17:46)
[2019-03-09] MEDS ORDERED: Ventolin/Prove6.7 GM INH (17:47)
[2019-03-09] MEDS ORDERED: ACET325 PO (17:48)
[2019-03-09] MEDS ORDERED: TYLENOL325 MG PO (17:49)
[2019-03-09] MEDS ORDERED: CVS DISPOSABLE399 ML PR (17:50)
--- NOTE | 2019-03-10 04:32 | NUR ---
Jade replacement. Tried to replace jade per protocol for patient coming from longterm. refused. stated the his doctor told him that the catheter does not have to be replaced. Will wait until further clarification from MD in am.
--- NOTE | 2019-03-10 07:48 | NUR ---
CALLED DOCTOR IS BEING PAGED. PT BP IS 77/33. AWAITING ORDERS. WILL ASK TO HOLD BUMEX AND COZAR MORNING MEDS.
--- NOTE | 2019-03-10 07:55 | NUR ---
CALLED 'S CELL LEFT MESSAGE RE PT'S BP 77/33
[2019-03-10 09:15] LABS: Bun/Creatinine Ratio 6.3 (12.0-20.0); Calcium, Blood 8.3 mg/dL (8.5-10.1); Creatinine, Blood 1.89 mg/dL (0.40-1.00); Potassium, Blood 3.3 mmol/L (3.5-5.5)
[2019-03-10 09:40] LABS: BASOPHILS ABSOLUTE AUTO 0.06 K/mm3 (0.00-0.23); BASOPHILS PERCENT AUTO 1 % (0-2); EOSINOPHILS ABSOLUTE AUTO 0.29 K/mm3 (0.00-0.68); EOSINOPHILS PERCENT AUTO 3 % (0-6); Hematocrit 35.2 % (33.0-51.0); Hemoglobin 11.2 g/dL (11.5-16.0); IMMATURE GRAN ABSOLUTE AUTO 0.05 K/mm3 (0.00-0.10); IMMATURE GRAN PERCENT AUTO 1 % (0-1); LYMPHOCYTES ABSOLUTE AUTO 2.95 K/mm3 (0.84-5.20); LYMPHOCYTES PERCENT AUTO 27 % (21-46); MONOCYTES ABSOLUTE AUTO 0.76 K/mm3 (0.16-1.47); MONOCYTES PERCENT AUTO 7 % (4-13); Mean Corpuscular HGB 28.5 pg (26.0-34.0); Mean Corpuscular HGB Conc 31.8 g/dL (31.5-36.5); Mean Corpuscular Volume 90 fL (80-100); Mean Platelet Volume 10.6 fL (9.1-12.4); NEUTROPHILS ABSOLUTE AUTO 6.84 K/mm3 (1.96-9.15); NEUTROPHILS PERCENT AUTO 63 % (41-73); Platelet Count 286 K/mm3 (150-400); RDW Coefficient Variation 15.6 % (11.7-14.2); RDW Standard Deviation 51.2 fL (35.1-46.3); Red Blood Cell Count 3.93 M/mm3 (3.80-5.20); White Blood Cell Count 10.95 K/mm3 (4.00-11.30)
--- NOTE | 2019-03-10 10:21 | NUR ---
CALLED HOSPITALIST LEFT MESSAGE INFORMING HER OF GRAM POSITIVE BLOOD CULTURES
[2019-03-10 12:39] LABS: Source, Urine Catheter
[2019-03-10 12:50] LABS: Bilirubin, Urine Neg (Neg); Blood, Urine 5+ (Neg); Glucose Qualitative, Urine Neg (Neg); Ketones, Urine Neg (Neg); Leukocyte Esterase, Urine 3+ (Neg); Nitrite, Urine Neg (Neg); Protein, Urine 2+ (Neg); Specific Gravity, Urine 1.015 (1.003-1.022); Urobilinogen, Urine NORM (Normal)
[2019-03-10 13:00] LABS: Appearance, Urine Hazy (Clear); Color, Urine Yellow (P-Yellow); Red Blood Cells, Urine 50-100 /hpf (0-2); Squamous Epithelial Cells Few /hpf (Few)
[2019-03-10 13:01] LABS: Amorphous Mod (0-Heavy); Bacteria Few /hpf; Mucus Mod (0-Heavy); Yeast/Fungi Urine Few /hpf
--- NOTE | 2019-03-10 16:50 | NUR ---
SHIFT SUMMARY HEALTH DIRECTOR REPORTED A LOW BP THIS MORNING, REPORTED SHE HAD RE-TAKEN BP TO BE SURE. I DID CALL THE HOSPITALIST. PT ASYMPTOMATIC. PT RECOVERED A NORMAL BP QUICKLY. WE DID HOLD BP MEDS AND DIURETIC. CHANGED SCHNEIDER CATHETER AND RETRIEVED A NEW UA SAMPLE, AWAITING RESULTS. I DID DISCOVER A PRESSURE ULCER ON THE LEFT BUTTOCK, I PHOTOGRAPHED THIS AND PLACED A MEPILEX ON SITE. ALL CONSENTS SIGNED AND IN CHART. PHOTO IN CHART. PT VERY WEAK, BEDRIDDEN AT THIS TIME. SHE HAD TWO LOOSE BOWEL MOVEMENTS TODAY. SHE IS A&O X4 AND CAN STATE HER NEEDS.
--- NOTE | 2019-03-11 04:52 | NUR ---
SHIFT SUMMARY: 74 Y/O OBESE FEMALE RESTED COMFORTABLY ALL SHIFT WITH SPOUSE AT SIDE IN RECLINER CHAIR, NO NEUROLOGICAL DEFICITS NOTED, FOLLOWING ALL SIMPLE VERBAL COMMANDS, SCHNEIDER DRAINING CLEAR YELLOW FLUID, PENDING POSSIBLE TRANSFER TO [facility] SOMETIME, DENIES PAIN OR NAUSEA, BED ALARM APPLIED, BED LOW POSITION, CALL LIGHT AT SIDE.
[2019-03-11 05:44] LABS: BASOPHILS ABSOLUTE AUTO 0.05 K/mm3 (0.00-0.23); BASOPHILS PERCENT AUTO 1 % (0-2); EOSINOPHILS ABSOLUTE AUTO 0.42 K/mm3 (0.00-0.68); EOSINOPHILS PERCENT AUTO 5 % (0-6); Hemoglobin 10.6 g/dL (11.5-16.0); IMMATURE GRAN ABSOLUTE AUTO 0.03 K/mm3 (0.00-0.10); IMMATURE GRAN PERCENT AUTO 0 % (0-1); LYMPHOCYTES ABSOLUTE AUTO 2.36 K/mm3 (0.84-5.20); LYMPHOCYTES PERCENT AUTO 28 % (21-46); MONOCYTES ABSOLUTE AUTO 0.59 K/mm3 (0.16-1.47); MONOCYTES PERCENT AUTO 7 % (4-13); Mean Corpuscular HGB 29.2 pg (26.0-34.0); Mean Corpuscular HGB Conc 32.1 g/dL (31.5-36.5); Mean Corpuscular Volume 91 fL (80-100); Mean Platelet Volume 10.3 fL (9.1-12.4); NEUTROPHILS ABSOLUTE AUTO 5.03 K/mm3 (1.96-9.15); NEUTROPHILS PERCENT AUTO 59 % (41-73); Platelet Count 288 K/mm3 (150-400); RDW Coefficient Variation 15.5 % (11.7-14.2); RDW Standard Deviation 51.8 fL (35.1-46.3); Red Blood Cell Count 3.63 M/mm3 (3.80-5.20); White Blood Cell Count 8.48 K/mm3 (4.00-11.30)
[2019-03-11 06:02] LABS: Bun/Creatinine Ratio 6.3 (12.0-20.0); Calcium, Blood 7.9 mg/dL (8.5-10.1); Creatinine, Blood 1.9 mg/dL (0.40-1.00); Potassium, Blood 3.4 mmol/L (3.5-5.5)
--- NOTE | 2019-03-11 17:49 | NUR ---
NO ACUTE CHANGES. WORKED WITH PT THIS SHIFT. AT BEDSIDE.
--- NOTE | 2019-03-12 04:34 | NUR ---
SHIFT SUMMARY: 74 Y/O OBESE FEMALE RESTED COMFORTABLY ALL SHIFT, SPOUSE SPENT NIGHT IN LOUNGE CHAIR AND VERY SUPPORTIVE, ALERT AND ORIENTED X 4, SCHNEIDER DRAINING CLEAR YELLOW FLUID, BED ALARM APPLIED, BED LOW POSITION, CALL LIGHT AT SIDE.
[2019-03-12 04:52] LABS: BASOPHILS ABSOLUTE AUTO 0.04 K/mm3 (0.00-0.23); BASOPHILS PERCENT AUTO 1 % (0-2); EOSINOPHILS ABSOLUTE AUTO 0.41 K/mm3 (0.00-0.68); EOSINOPHILS PERCENT AUTO 6 % (0-6); Hematocrit 33.3 % (33.0-51.0); Hemoglobin 10.7 g/dL (11.5-16.0); IMMATURE GRAN ABSOLUTE AUTO 0.04 K/mm3 (0.00-0.10); IMMATURE GRAN PERCENT AUTO 1 % (0-1); LYMPHOCYTES ABSOLUTE AUTO 2.65 K/mm3 (0.84-5.20); LYMPHOCYTES PERCENT AUTO 36 % (21-46); MONOCYTES PERCENT AUTO 7 % (4-13); Mean Corpuscular HGB 29.2 pg (26.0-34.0); Mean Corpuscular HGB Conc 32.1 g/dL (31.5-36.5); Mean Corpuscular Volume 91 fL (80-100); NEUTROPHILS ABSOLUTE AUTO 3.64 K/mm3 (1.96-9.15); NEUTROPHILS PERCENT AUTO 50 % (41-73); Platelet Count 293 K/mm3 (150-400); RDW Coefficient Variation 15.5 % (11.7-14.2); RDW Standard Deviation 51.8 fL (35.1-46.3); Red Blood Cell Count 3.66 M/mm3 (3.80-5.20); White Blood Cell Count 7.28 K/mm3 (4.00-11.30)
[2019-03-12 05:12] LABS: Bun/Creatinine Ratio 4.9 (12.0-20.0); Creatinine, Blood 1.82 mg/dL (0.40-1.00); Potassium, Blood 3.2 mmol/L (3.5-5.5)
[2019-03-12] MEDS ORDERED: LOSA25 PO (10:04)
[2019-03-12] MEDS ORDERED: FAMO20 PO (10:04)
[2019-03-12] MEDS ORDERED: FLUC150A PO (10:06)
[2019-03-12] MEDS ORDERED: GABA100 PO (10:06)
--- NOTE | 2019-03-12 15:02 | NUR ---
PATIENT TO DISCHARGE BACK TO [facility]. THIS NURSE CALLED REPORT AND TALKED WITH XAVIER. LAVERN DEACCESSED PREVIOULSY IN THE DAY. PATIENT HAD BM SO WAS CHANGED BEFORE TRANSPORT. FAMILY WAS PRESENT. THIS NURSE WENT OVER ALL THE MEDS AND PROCEDURES THAT WOULD BE NEEDED AT [facility] WITH DANELLE, THE .
--- NOTE | 2019-03-12 16:30 | NUR ---
Spoke with nurse Janina. Pt discharging. Reviewed with Janina. Pt's is persistantly trying to get his to walk, which, apparently pt doesn't have the desire to do. Pt very high risk for readmission, given her decline in the past months. She has multiple ER visits and multiple admissions. has refused to speak to palliative care about advanced care planning in the last two admissions, insisting that pt will never be a DNR/DNI. Will remain available for future consultations if needed. appears to have poor insight, lower education level, and will not allow for conversation regarding code status.
--- NOTE | 2019-03-13 05:09 | NUR ---
[facility] CALLED TO FIND OUT WHEN SCHNEIDER WAS PLACED
== END 2019-03-12 15:22 | DRG 689 ==
LOC: ER 15:35 → MEDS 18:03 → ENPENDDIS 03-12 10:00 → MEDS 03-12 15:22
PROVIDERS: Hospitalist; Internal Medicine; ADMIT Family Medicine
DX: N39.0 Urinary tract infection, site not specified (principal); G93.41 Metabolic encephalopathy; Z68.43 Body mass index [BMI] 50.0-59.9, adult; N18.4 Chronic kidney disease, stage 4 (severe); E11.22 Type 2 diabetes mellitus with diabetic chronic kidney disease; I12.9 Hypertensive chronic kidney disease with stage 1 through stage 4 chronic kidney disease, or unspecified chronic kidney disease; Z87.891 Personal history of nicotine dependence; Z79.4 Long term (current) use of insulin; F32.9 Major depressive disorder, single episode, unspecified; R33.9 Retention of urine, unspecified; E11.40 Type 2 diabetes mellitus with diabetic neuropathy, unspecified; E66.01 Morbid (severe) obesity due to excess calories
CPT/HCPCS: 36415; 70450; 71045; 80048; 80053; 81001; 82947; 83605; 85025; 87040; 87086; 87106; 97110; 97162; 97530; 99285-25; A9270; J0696; J1642; J1650; J7040; J7050; J7120

== ENCOUNTER 2019-03-31 17:20 | Inpatient (IN) | payer MEDICARE ==
[~2019-03-31] VITALS: Ht 152.4 cm; Wt 129.0 kg
[~2019-03-31 17:20] MED LIST changes: +BISA10S PR; +CLOP75 PO; +CVS DISPOSABLE399 ML PR; +DOK100 MG PO; +FAMO20 PO; +FLUC150A PO; +Humalog100 UNIT/3 SC; +LOSA25 PO; +LOSARTAN POTASS50 MG PO; +Nystatin15 GM TOP; +OMEP20ER PO; +Phillips'400 MG/5 M PO; +Prozac20 MG PO; +SENN187 PO; +TYLENOL325 MG PO; +Ultram50 MG PO; +VENL75ER PO; +Ventolin/Prove6.7 GM INH
[2019-03-31 17:54] LABS: BASOPHILS ABSOLUTE AUTO 0.02 K/mm3 (0.00-0.23); BASOPHILS PERCENT AUTO 0 % (0-2); EOSINOPHILS ABSOLUTE AUTO 0.63 K/mm3 (0.00-0.68); EOSINOPHILS PERCENT AUTO 7 % (0-6); Hematocrit 33.6 % (33.0-51.0); Hemoglobin 10.8 g/dL (11.5-16.0); IMMATURE GRAN ABSOLUTE AUTO 0.02 K/mm3 (0.00-0.10); IMMATURE GRAN PERCENT AUTO 0 % (0-1); LYMPHOCYTES ABSOLUTE AUTO 1.37 K/mm3 (0.84-5.20); LYMPHOCYTES PERCENT AUTO 16 % (21-46); MONOCYTES ABSOLUTE AUTO 0.86 K/mm3 (0.16-1.47); MONOCYTES PERCENT AUTO 10 % (4-13); Mean Corpuscular HGB 29.6 pg (26.0-34.0); Mean Corpuscular HGB Conc 32.1 g/dL (31.5-36.5); Mean Corpuscular Volume 92 fL (80-100); Mean Platelet Volume 10.7 fL (9.1-12.4); NEUTROPHILS ABSOLUTE AUTO 5.68 K/mm3 (1.96-9.15); NEUTROPHILS PERCENT AUTO 66 % (41-73); Platelet Count 167 K/mm3 (150-400); RDW Coefficient Variation 17.3 % (11.7-14.2); RDW Standard Deviation 58.4 fL (35.1-46.3); Red Blood Cell Count 3.65 M/mm3 (3.80-5.20); White Blood Cell Count 8.58 K/mm3 (4.00-11.30)
[2019-03-31 17:56] LABS: Source, Urine Clean Catch
[2019-03-31 18:10] LABS: Bilirubin, Urine Neg (Neg); Blood, Urine 3+ (Neg); Glucose Qualitative, Urine Neg (Neg); Ketones, Urine Neg (Neg); Leukocyte Esterase, Urine 3+ (Neg); Nitrite, Urine Neg (Neg); Protein, Urine 2+ (Neg); Specific Gravity, Urine 1.015 (1.003-1.022); Urobilinogen, Urine NORM (Normal)
[2019-03-31] MEDS ORDERED: LOSA25 PO (18:16)
[2019-03-31 18:17] LABS: Albumin, Blood 2.3 g/dL (3.4-5.0); Albumin/Globulin Ratio 0.8 (0.8-1.8); Bilirubin, Total 0.5 mg/dL (0.1-1.0); Bun/Creatinine Ratio 7.6 (12.0-20.0); Calcium, Blood 8.2 mg/dL (8.5-10.1); Creatinine, Blood 2.78 mg/dL (0.40-1.00); Globulin, Blood 2.9 g/dL (2.2-4.0); Potassium, Blood 3.6 mmol/L (3.5-5.5); Total Protein, Blood 5.2 g/dL (6.4-8.2)
[2019-03-31] MEDS ORDERED: GABA300 (18:17)
[2019-03-31] MEDS ORDERED: SENN187 PO (18:29)
[2019-03-31] MEDS ORDERED: INSULANPEN SC (18:34)
[2019-03-31 18:49] LABS: Appearance, Urine Cloudy (Clear); Color, Urine Yellow (P-Yellow)
[2019-03-31 18:53] LABS: Bacteria Many /hpf; Squamous Epithelial Cells Few /hpf (Few); White Blood Cells, Urine TNTC /hpf (0-5)
[2019-03-31] MEDS ORDERED: Bactrim Ds Tab1 EACH PO (22:05)
--- NOTE | 2019-04-01 01:46 | NUR ---
PROVIDER DR BARNEY CALLED REGARDING PT'S CBG'S, PORT, AND BP. ORDERS TO ALLOW PORT ACCESS FOR FLUIDS RECEIVED. PROVIDER UPDATED ON PT'S CBG'S, PT WAS HYPOGLYCEMIN IN ED WAS GIVEN OJ AND HILDA TO 80'S. MOST RECENT BACK TO 62 CBG. OJ GIVEN X1 CUP, PROVIDER ORDERED 1 AMP OF D50 AND TO MONITOR AFTER THAT. PROVIDER NOTIFIED THAT SYSTOLIC BP'S HAVE REMINED IN THE 90'S DESPITE A 1L NS BOLUS AND FLUIDS INFUSING @Q00ML/HR. 500ML BOLUS ORDER PLACED.
[2019-04-01 04:22] LABS: BASOPHILS ABSOLUTE AUTO 0.01 K/mm3 (0.00-0.23); BASOPHILS PERCENT AUTO 0 % (0-2); EOSINOPHILS ABSOLUTE AUTO 0.55 K/mm3 (0.00-0.68); EOSINOPHILS PERCENT AUTO 9 % (0-6); Hematocrit 30.9 % (33.0-51.0); IMMATURE GRAN ABSOLUTE AUTO 0.03 K/mm3 (0.00-0.10); IMMATURE GRAN PERCENT AUTO 1 % (0-1); LYMPHOCYTES ABSOLUTE AUTO 0.96 K/mm3 (0.84-5.20); LYMPHOCYTES PERCENT AUTO 15 % (21-46); MONOCYTES ABSOLUTE AUTO 0.52 K/mm3 (0.16-1.47); MONOCYTES PERCENT AUTO 8 % (4-13); Mean Corpuscular HGB 29.3 pg (26.0-34.0); Mean Corpuscular HGB Conc 32.4 g/dL (31.5-36.5); Mean Corpuscular Volume 91 fL (80-100); Mean Platelet Volume 11.5 fL (9.1-12.4); NEUTROPHILS ABSOLUTE AUTO 4.31 K/mm3 (1.96-9.15); NEUTROPHILS PERCENT AUTO 68 % (41-73); Platelet Count 166 K/mm3 (150-400); RDW Coefficient Variation 17.3 % (11.7-14.2); Red Blood Cell Count 3.41 M/mm3 (3.80-5.20); White Blood Cell Count 6.38 K/mm3 (4.00-11.30)
[2019-04-01 04:45] LABS: Albumin, Blood 2.1 g/dL (3.4-5.0); Albumin/Globulin Ratio 0.8 (0.8-1.8); Bilirubin, Total 0.5 mg/dL (0.1-1.0); Bun/Creatinine Ratio 8.1 (12.0-20.0); Calcium, Blood 7.7 mg/dL (8.5-10.1); Creatinine, Blood 2.7 mg/dL (0.40-1.00); Globulin, Blood 2.7 g/dL (2.2-4.0); Potassium, Blood 3.8 mmol/L (3.5-5.5); Total Protein, Blood 4.8 g/dL (6.4-8.2)
--- NOTE | 2019-04-01 07:53 | NUR ---
END OF SHIFT SUMMARY PT TO UNIT FROM ED, DROWSY, HOTN, HYPOGLUCEMIA. PROVIDER CALLED, SEE PROVIDER NOTE. 70'S NSR. BP HAS STAYED 90'S SYSTOLICALLY WITH OCCASIONAL MOST RECENT SYSTOLIC BP 130'S. LAST LAB CBG STABLE. MEDIPORT ACCESSED AND DRESSED, FLUIDS RUNNING @100. PT MORE ORIENTED NOW VERSUS ADMIT. L LEG WOUND PIC IN CHART FROM [facility]. ADMISSION PACKET COMPLETED. HAS BEEN AT BEDSIDE T/O NIGHT. PT IS NOW RESPONDING APPROPRIATELY TO QUESTIONS. PT CONTINUES ON 1 - 2L NC, SPO2 >94%. PT HAS BEEN RESTING FOR MAJORITY OF SHIFT. THIS RN AND INSURANCE COORDINATOR CHRISTOFER FARRELL HAVE SPENT MUCH TIME IN ROOM, MANAGING BP AND CBG'S. BED IN LOWEST POSITION. REPORT GIVEN TO ONCOMING RN.
--- NOTE | 2019-04-01 18:38 | NUR ---
SHIFT SUMMARY PT RESTING IN BED THROUGHOUT THE DAY. VSS EXCEPT FOR A FEW LOW BPs, PT ASYMPTOMATIC. ALERT AND ORIENTED X3, SLOW TO RESPOND, BUT FOLLOWING COMMANDS APPROPRIATELY. LUNG SOUNDS CLEAR, DIMINISHED BASES. C/O PAIN OFF AND ON TODAY, MEDICATED WITH PRN TYLENOL AND REPOSITIONED FOR COMFORT. PT INCONTINENT OF URINE THROUGHOUT THE DAY. EXTREMITIES WEAK THROUGHOUT, PT VERY WEAK WITH TURNS, BUT STAFF ENCOURAGED PT TO HELP WITH REPOSITIONING. 1+ PITTING EDEMA TO BLE. REDNESS / SCABS NOTED TO L BUTT AND REDNESS TO ELOY AREA, CREAM APPLIED PER PT REQUEST. IV FLUIDS TO RIGHT MEDIPORT, DRSG CDI. NSR WITH PVC RATE 76 PER TELEMETRY. AT BEDSIDE OFF AND ON TODAY. WILL CONTINUE TO MONITOR.
[2019-04-02 04:34] LABS: BASOPHILS ABSOLUTE AUTO 0.01 K/mm3 (0.00-0.23); BASOPHILS PERCENT AUTO 0 % (0-2); EOSINOPHILS ABSOLUTE AUTO 0.74 K/mm3 (0.00-0.68); EOSINOPHILS PERCENT AUTO 11 % (0-6); Hemoglobin 9.9 g/dL (11.5-16.0); IMMATURE GRAN ABSOLUTE AUTO 0.02 K/mm3 (0.00-0.10); IMMATURE GRAN PERCENT AUTO 0 % (0-1); LYMPHOCYTES ABSOLUTE AUTO 1.55 K/mm3 (0.84-5.20); LYMPHOCYTES PERCENT AUTO 22 % (21-46); MONOCYTES ABSOLUTE AUTO 0.38 K/mm3 (0.16-1.47); MONOCYTES PERCENT AUTO 6 % (4-13); Mean Corpuscular HGB 29.8 pg (26.0-34.0); Mean Corpuscular HGB Conc 31.9 g/dL (31.5-36.5); Mean Corpuscular Volume 93 fL (80-100); Mean Platelet Volume 11.2 fL (9.1-12.4); NEUTROPHILS ABSOLUTE AUTO 4.27 K/mm3 (1.96-9.15); NEUTROPHILS PERCENT AUTO 61 % (41-73); Platelet Count 163 K/mm3 (150-400); RDW Coefficient Variation 17.6 % (11.7-14.2); RDW Standard Deviation 59.5 fL (35.1-46.3); Red Blood Cell Count 3.32 M/mm3 (3.80-5.20); White Blood Cell Count 6.97 K/mm3 (4.00-11.30)
[2019-04-02 04:52] LABS: Albumin, Blood 1.9 g/dL (3.4-5.0); Albumin/Globulin Ratio 0.7 (0.8-1.8); Bilirubin, Total 0.4 mg/dL (0.1-1.0); Bun/Creatinine Ratio 7.4 (12.0-20.0); Calcium, Blood 7.4 mg/dL (8.5-10.1); Creatinine, Blood 2.29 mg/dL (0.40-1.00); Globulin, Blood 2.8 g/dL (2.2-4.0); Potassium, Blood 3.4 mmol/L (3.5-5.5); Total Protein, Blood 4.7 g/dL (6.4-8.2)
--- NOTE | 2019-04-02 06:17 | NUR ---
SUMMARY: ADMIT DAY [address] HEATH SERVICE. VSS, AFEBRILE, ROOM AIR. PT REMAINS A&O X3-4 WITH AT BEDSIDE. 2-3 EDEMA IN ABD, HIPS, BLE. MOVES FAIR WITH LOTS OF ENCOURAGEMENT AND POSITIVE REINFORCEMENT. ENCOURAGE ROM AND PT/OT. SPOUSE STATES PT USES [place] LIFT AT BASELINE AT [facility].
--- NOTE | 2019-04-02 19:43 | NUR ---
SHIFT SUMMARY PCU TRANSFER THIS AFTERNOON. PATIENT DENIES PAIN, NAUSEA, AND SHORTNESS OF BREATH. PATIENT STATES SHE CANNOT BEAR WEIGHT AT THIS TIME. AT BEDSIDE. CALL LIGHT IN REACH.
--- NOTE | 2019-04-03 03:49 | NUR ---
SHIFT SUMMARY PT ADMITTED FOR ENCEPHALOPATHY. SHE HAS A MEDIPORT IN THE RIGHT CHEST WALL. SHE TAKES HER MEDICATIONS WHOLE AND IS ON NASAL CANNULA. SHE HAS HAD HER LEGS ELEVATED THROUGHOUT THE NIGHT. SHE IS ON A ADA DIET AND IS A LIFT TRANSFER. SHE HAS APPEARED TO REST COMFORTABLY THROUGHOUT THE NIGHT. WILL CONTINUE TO MONITOR.
[2019-04-03 05:33] LABS: Albumin, Blood 1.9 g/dL (3.4-5.0); Albumin/Globulin Ratio 0.6 (0.8-1.8); Bilirubin, Total 0.4 mg/dL (0.1-1.0); Bun/Creatinine Ratio 8.1 (12.0-20.0); Calcium, Blood 7.6 mg/dL (8.5-10.1); Creatinine, Blood 1.97 mg/dL (0.40-1.00); Potassium, Blood 3.5 mmol/L (3.5-5.5); Total Protein, Blood 4.9 g/dL (6.4-8.2)
--- NOTE | 2019-04-03 12:53 | NUR ---
[facility] visit conducted. Patient is lying in bed and alert with no on present in the room. Patient openly shares that she is hallucinating at the time of the visit and is seeing the floor on the cieling but everything else is normal. Patient is able to tell me where she is and her name and the names of her family. I affirm that some things are solid for her. Patient tells me of her Restorationism jc and that God is her source of strength along with her family. Patient tells me that she has concerns about ever recovering from this weakness. We explore sources of hope and meaning. I listen enpathically and provide pastoral executive assistant to general counsel and prayer. I will continue to remain available to patient and family.
--- NOTE | 2019-04-04 00:58 | NUR ---
SHIFT SUMMARY NO ACUTE CHANGES WITH THIS PT TONIGHT. SHE HAS APPEARED TO REST COMFORTABLY WITH AT BEDSIDE/ WILL CONTINUE TO MONITOR.
[2019-04-04 05:41] LABS: Bun/Creatinine Ratio 7.7 (12.0-20.0); Calcium, Blood 7.9 mg/dL (8.5-10.1); Creatinine, Blood 1.68 mg/dL (0.40-1.00); Potassium, Blood 3.3 mmol/L (3.5-5.5)
--- NOTE | 2019-04-04 17:12 | NUR ---
SHIFT SUMMARY MORE CONFUSED TODAY. LIFT PATIENT. CXR SHOWED BILATERAL PNEUMONIA. GENERALIZED EDEMA. LIVES AT [facility] WITH . UNABLE TO TOLERATE SITTING IN CHAIR. NEW ANTIBIOTICS ADMINISTERED TODAY. MEDIPORT TO RIGHT CW HEP FLUSH DIRECTED. CBG'S AC AND HS. PLAN TO GO TO [facility].
--- NOTE | 2019-04-04 18:34 | NUR ---
PT AWAKENED EASILY WITH VERBAL STIMULI STATES "I THINK I'M FEELING BETTER I'M JUST SO TIRED TODAY" [facility]. TURNED ONTO RIGHT SIDE VIA LIFT. ATTENDS CHANGED. PT AWAKE TAKING SIPS OF WATER.
[2019-04-05 05:36] LABS: BASOPHILS ABSOLUTE AUTO 0.03 K/mm3 (0.00-0.23); BASOPHILS PERCENT AUTO 0 % (0-2); EOSINOPHILS ABSOLUTE AUTO 0.83 K/mm3 (0.00-0.68); EOSINOPHILS PERCENT AUTO 12 % (0-6); Hematocrit 32.1 % (33.0-51.0); Hemoglobin 10.1 g/dL (11.5-16.0); Mean Corpuscular HGB 29.6 pg (26.0-34.0); Mean Corpuscular HGB Conc 31.5 g/dL (31.5-36.5); Mean Corpuscular Volume 94 fL (80-100); Mean Platelet Volume 10.4 fL (9.1-12.4); Platelet Count 196 K/mm3 (150-400); RDW Coefficient Variation 17.3 % (11.7-14.2); RDW Standard Deviation 59.7 fL (35.1-46.3); Red Blood Cell Count 3.41 M/mm3 (3.80-5.20); White Blood Cell Count 7.13 K/mm3 (4.00-11.30)
[2019-04-05 05:37] LABS: IMMATURE GRAN ABSOLUTE AUTO 0.05 K/mm3 (0.00-0.10); IMMATURE GRAN PERCENT AUTO 1 % (0-1); LYMPHOCYTES ABSOLUTE AUTO 3.14 K/mm3 (0.84-5.20); LYMPHOCYTES PERCENT AUTO 44 % (21-46); MONOCYTES ABSOLUTE AUTO 0.55 K/mm3 (0.16-1.47); MONOCYTES PERCENT AUTO 8 % (4-13); NEUTROPHILS ABSOLUTE AUTO 2.53 K/mm3 (1.96-9.15); NEUTROPHILS PERCENT AUTO 36 % (41-73)
[2019-04-05 06:11] LABS: Albumin, Blood 1.9 g/dL (3.4-5.0); Albumin/Globulin Ratio 0.6 (0.8-1.8); Bilirubin, Total 0.3 mg/dL (0.1-1.0); Calcium, Blood 8.3 mg/dL (8.5-10.1); Creatinine, Blood 1.66 mg/dL (0.40-1.00); Magnesium, Blood 1.8 mg/dL (1.6-2.4); Potassium, Blood 3.5 mmol/L (3.5-5.5); Total Protein, Blood 4.9 g/dL (6.4-8.2)
--- NOTE | 2019-04-05 06:27 | NUR ---
SHIFT SUMMARY PT HAD SOME BACK PAIN AND WAS MEDICATED PER EMAR. PT PRESENT AND STAYED NIGHT WITH PT. PT WAS FATIGUED AT BEGINNING OF SHIFT BUT ALERT. THIS AM PT WAS LETHARGIC AND CONFUSED. PT CBG WAS CHECKED AND WAS WNL. PT HAD SOME COUGHING NOTED WITH NO PRODUCTION. PT ALERTNESS INCREASED AFTER CHANGING AND REPOSITIONING. PT HAS BEEN SLEEPING T/O SHIFT. PT CURRENTLY SLEEPING. CALL LIGHT IN REACH.
--- NOTE | 2019-04-05 17:24 | NUR ---
Shift Summary A/O to self and family. Pleasant and cooperative with care; however does not call appropriately. Pt seems to be constantly fatigued t/o day. Turn/Reposition x 2-3 assist. Tele: Sinus Robin @ 59 c 1st degree block. L/S: crackles at bilateral bases. NO other acute changes this shift.
--- NOTE | 2019-04-06 02:49 | NUR ---
PT continues 3 max assist with toileting. She is incontinent of urine and unable to assist with turns or lifting to have attends changed. Appetitie very poor, albumin is low. Has lesion lt anterior leg that is large and crusted. DX of metastatic melanoma lt le extremity. PT continues weak and confused. Spouse at bedside. PT has rt chest wall mediport, tko for iv zosyn Q 8 hours. Continues on 2 l nc for hypoxia. PT has full code status, has seen pallative care. Denies acute pain. Urine culture grew out lactobacillis, has yeasty smell on nystatin to skin folds. Edema present skin care to areas of moisture provided.
--- NOTE | 2019-04-06 11:58 | NUR ---
Physician notified Dr. Valdes notified RE patient's inquiring about IV nutrition. Pt is tolerating PO well, but just doesn't have an appetitie. Per physician, pt is tolerating PO well so no need for IV nutrition.
--- NOTE | 2019-04-06 14:04 | NUR ---
Incentive Spirometer This RN educated pt on operating the IS. Teach-back method was employed and successful. Pt able to demonstrate back.
--- NOTE | 2019-04-06 17:12 | NUR ---
Shift Summary A/O to self, family, situation, and place. Pleasant and cooperative with care. DRY CLEANER and RN assisted with transferring pt to recliner, pt tolerated for less than 1 hour and wanted to be back in bed. has been at bedside t/o. Incentive spirometer at bedside, this RN has been encouraging to use. Pt has been on RA and saturating at 94%. No c/o pain, nausea, or vomiting. Denies SOB. No other acute changes this shift.
--- NOTE | 2019-04-06 17:54 | NUR ---
Oxygen Weaning Status This RN rechecked O2 saturations on RA, it was 86-87%. 1L O2 via NC applied. Saturations now 96-97%.
--- NOTE | 2019-04-07 04:22 | NUR ---
SUMMARY: PT A/OX4 BUT RESISTANT TO CARE/ADL'S AND REMAINED AT BEDSIDE FOR ENCOURAGEMENT. SHE'S A LIFT AND 3+P MAX ASSIST FOR REPOSITIONING AND ATTENDS CHANGES. PT IS INCONTINENT OF URINE BUT ALERTS STAFF IF BEDPAN NEEDED FOR BM'S. SHE TOOK SENOKOT BUT HAD NO BM THIS SHIFT. TURN SCHEDULE MAINTAINED AND SKIN CARE PROVIDED PRN. NYSTATIN APPLIED TO ELOY AREA AND SKIN FOLDS. SHE IS OBESE W/GENERAL ANASARCA APPEARANCE. BUE AND BLE'S ELEVATED ON PILLOWS. RN HELD HS LANTUS FOR CBG 83, PT LACKING APPETITE AND REFUSING PRN MN SNACK. R.CW MEDIPORT IS ACCESSED AND INFUSES AT TKO BETWEEN IV ABX. SHE REMAINS S.CANDY/ NSR PER TELEMETRY AT 50'S-60'S BPM AND IS ON 1L O2 VIA NC W/INABILITY TO TITRATE OFF W/O DESATS. NO ACUTE CHANGES, VSS/AFEBRILE. WCTM/REPORT TO DAY RN.
[2019-04-07 05:54] LABS: BASOPHILS ABSOLUTE AUTO 0.08 K/mm3 (0.00-0.23); BASOPHILS PERCENT AUTO 1 % (0-2); EOSINOPHILS ABSOLUTE AUTO 0.53 K/mm3 (0.00-0.68); EOSINOPHILS PERCENT AUTO 7 % (0-6); Hematocrit 33.7 % (33.0-51.0); Hemoglobin 10.4 g/dL (11.5-16.0); IMMATURE GRAN ABSOLUTE AUTO 0.17 K/mm3 (0.00-0.10); IMMATURE GRAN PERCENT AUTO 2 % (0-1); LYMPHOCYTES ABSOLUTE AUTO 3.28 K/mm3 (0.84-5.20); LYMPHOCYTES PERCENT AUTO 45 % (21-46); MONOCYTES ABSOLUTE AUTO 0.65 K/mm3 (0.16-1.47); MONOCYTES PERCENT AUTO 9 % (4-13); Mean Corpuscular HGB 28.8 pg (26.0-34.0); Mean Corpuscular HGB Conc 30.9 g/dL (31.5-36.5); Mean Corpuscular Volume 93 fL (80-100); Mean Platelet Volume 9.9 fL (9.1-12.4); NEUTROPHILS ABSOLUTE AUTO 2.57 K/mm3 (1.96-9.15); NEUTROPHILS PERCENT AUTO 35 % (41-73); Platelet Count 251 K/mm3 (150-400); RDW Coefficient Variation 17.3 % (11.7-14.2); RDW Standard Deviation 59.4 fL (35.1-46.3); Red Blood Cell Count 3.61 M/mm3 (3.80-5.20); White Blood Cell Count 7.28 K/mm3 (4.00-11.30)
[2019-04-07 06:13] LABS: Albumin, Blood 1.9 g/dL (3.4-5.0); Albumin/Globulin Ratio 0.6 (0.8-1.8); Bilirubin, Total 0.3 mg/dL (0.1-1.0); Bun/Creatinine Ratio 3.8 (12.0-20.0); Calcium, Blood 8.7 mg/dL (8.5-10.1); Creatinine, Blood 1.59 mg/dL (0.40-1.00); Globulin, Blood 3.3 g/dL (2.2-4.0); Potassium, Blood 3.8 mmol/L (3.5-5.5); Total Protein, Blood 5.2 g/dL (6.4-8.2)
--- NOTE | 2019-04-07 14:26 | NUR ---
Spiritual care visit conducted. Patient is lying in bed with , Keith and daughter, Kemi godwin. I focus mostly on Keith this visit because last visit he was not present. Therapeutic alliance was established with Keith as we talked about his life growing up and his spiritual background ([employer] from many years ago yet is a strong believer just not a sikh attender). I listened empathically and provided prayer. Patient and family thank me for the visit. I will continue to remain available to patient and family.
--- NOTE | 2019-04-07 18:02 | NUR ---
PT IS A/OX3, PLEASANT AND COOPERATIVE, THE PT IS UP WITH A LIFT AT THIS TIME, THIS AM THE PT DECLINED TO GET UP INTO THE CHAIR, THE PT WAS SEEN BY THE PHYSICAL AND OCCUPATIONAL THERAPIST TODAY, THE PT APPEARS TO BE BREATHING EASILY AT REST ON 1L/MIN O2, THE PT HAS A POOR APPETITE, LOTION WAS APPLIED TO THE PTS BLE, NYSTATIN POWDER APPLIED TO ELOY AREA, THE PTS WAS AT THE BEDSIDE T/O THE DAY, THE PT HAS DIARRHEA, LAXATIVES WERE HELD, IMODIUM WAS ORDERED BY DR. HEATH AND GIVEN, CALL LIGHT IN REACH, THE PT IS ON A AIRBED
--- NOTE | 2019-04-08 05:40 | NUR ---
SUMMARY: PT A/OX3, PLEASANT AND COOPERATIVE W/CARE THIS SHIFT AND SPECIFIES NEEDS. PT ON AIRBED AND TURN SCHEDULE MAINTAINED. ATTENDS CHANGED PRN FOR URINARY INCONTINENCE, NO FURTHER BM'S OBSERVED POST IMMODIUM RECIEVED ON DAY SHIFT FOR DIARRHEA AND HS BOWEL MEDS HELD. NYSTATIN APPLIED TO ELOY AREA AND SKIN FOLDS W/BARRIER CREAM APPLIED TO BUTTOCKS. SHE REMAINS ON 1-1.5L O2 W/LS CLEAR AND DIMINISHED. MEDIPORT TO R.CW IS HEP LOCKED AND PT IS TO [facility] TODAY. BILAT PNM PERSISTS PER RECENT CXR. NO ACUTE CHANGES, VSS AND AFEBRILE. PT IS POSSIBLE D/C THOUGH PT AND HER THINK PROOF OF PNM IMPROVEMENT SHOULD BE EVIDENT PRIOR TO D/C. WILL ENSURE DAY STAFF ARE AWARE. CHACHA AND REPORT TO DAY RN.
--- NOTE | 2019-04-09 05:44 | NUR ---
Shift Summary: Patient slept well between cares. O2 sats stable on 1L. Repositioned q2, but she did not tolerate movement well. Changed incontinent briefs. VSS.
[2019-04-09 08:38] LABS: BASOPHILS ABSOLUTE AUTO 0.12 K/mm3 (0.00-0.23); BASOPHILS PERCENT AUTO 2 % (0-2); EOSINOPHILS ABSOLUTE AUTO 0.37 K/mm3 (0.00-0.68); EOSINOPHILS PERCENT AUTO 5 % (0-6); Hematocrit 32.9 % (33.0-51.0); IMMATURE GRAN ABSOLUTE AUTO 0.24 K/mm3 (0.00-0.10); IMMATURE GRAN PERCENT AUTO 4 % (0-1); LYMPHOCYTES ABSOLUTE AUTO 2.63 K/mm3 (0.84-5.20); LYMPHOCYTES PERCENT AUTO 39 % (21-46); MONOCYTES ABSOLUTE AUTO 0.65 K/mm3 (0.16-1.47); MONOCYTES PERCENT AUTO 10 % (4-13); Mean Corpuscular HGB 28.7 pg (26.0-34.0); Mean Corpuscular HGB Conc 30.4 g/dL (31.5-36.5); Mean Corpuscular Volume 94 fL (80-100); NEUTROPHILS ABSOLUTE AUTO 2.83 K/mm3 (1.96-9.15); NEUTROPHILS PERCENT AUTO 41 % (41-73); Platelet Count 255 K/mm3 (150-400); RDW Coefficient Variation 17.6 % (11.7-14.2); RDW Standard Deviation 60.7 fL (35.1-46.3); Red Blood Cell Count 3.49 M/mm3 (3.80-5.20); White Blood Cell Count 6.84 K/mm3 (4.00-11.30)
[2019-04-09 09:05] LABS: Albumin, Blood 1.9 g/dL (3.4-5.0); Albumin/Globulin Ratio 0.6 (0.8-1.8); Bilirubin, Total 0.2 mg/dL (0.1-1.0); Calcium, Blood 8.5 mg/dL (8.5-10.1); Creatinine, Blood 1.48 mg/dL (0.40-1.00); Potassium, Blood 3.7 mmol/L (3.5-5.5); Total Protein, Blood 4.9 g/dL (6.4-8.2)
[2019-04-09] MEDS ORDERED: Loperamide2 MG PO (11:15)
[2019-04-09] MEDS ORDERED: LEVFLO500 PO (11:15)
[2019-04-09] MEDS ORDERED: Pedi-Dri 100,0060 GM TOP (11:16)
--- NOTE | 2019-04-09 13:35 | NUR ---
PT DISCHARGED 1105 TO [facility]. BED TO WHEELCHAIR VIA LIFT. PT DRESSED AND FRESH ATTENDS BEFORE DC. CLEANSED SKIN AND APPLIED NYSTATIN POWDER TO SKIN CREASES REDDENED. PORT DEACCESSED. TO [facility], FOLLOW TRANSPORT [facility] TO LOCATION. CALLED REPOET TO [facility] 1100.
== END 2019-04-09 11:07 | DRG 193 ==
LOC: ER 17:20 → PCU 19:50 → MEDS 04-02 17:40
PROVIDERS: Emergency Medicine; Family Medicine; ADMIT Hospitalist
DX: J18.9 Pneumonia, unspecified organism (principal); G93.41 Metabolic encephalopathy; N39.0 Urinary tract infection, site not specified; Z68.43 Body mass index [BMI] 50.0-59.9, adult; E87.1 Hypo-osmolality and hyponatremia; N18.4 Chronic kidney disease, stage 4 (severe); I95.9 Hypotension, unspecified; E11.649 Type 2 diabetes mellitus with hypoglycemia without coma; E66.01 Morbid (severe) obesity due to excess calories; I12.9 Hypertensive chronic kidney disease with stage 1 through stage 4 chronic kidney disease, or unspecified chronic kidney disease; E11.22 Type 2 diabetes mellitus with diabetic chronic kidney disease; E87.6 Hypokalemia; C43.72 Malignant melanoma of left lower limb, including hip; E11.40 Type 2 diabetes mellitus with diabetic neuropathy, unspecified; R09.02 Hypoxemia; E78.5 Hyperlipidemia, unspecified; F32.9 Major depressive disorder, single episode, unspecified; I69.398 Other sequelae of cerebral infarction; Z86.718 Personal history of other venous thrombosis and embolism; Z87.891 Personal history of nicotine dependence; Z79.4 Long term (current) use of insulin
CPT/HCPCS: 36415; 71045; 71046; 80048; 80053; 81001; 82947; 83605; 83735; 85025; 87040; 87086; 93005; 93010; 94760; 96374; 97110; 97162; 97530; 99285-25; A9270; J0696; J1642; J1650; J1956; J2405; J2543; J7030; J7040; J7050; J7799; P9612

== ENCOUNTER 2019-05-09 13:24 | Inpatient (IN) | payer MEDICARE, OTHER ==
[~2019-05-09] VITALS: Ht 167.6 cm; Wt 138.0 kg
[~2019-05-09 13:24] MED LIST changes: +Bactrim Ds Tab1 EACH PO; +GABA300; +LEVFLO500 PO; +Loperamide2 MG PO; +Pedi-Dri 100,0060 GM TOP
[2019-05-09] MEDS ORDERED: FURO40 (14:02)
[2019-05-09 14:34] LABS: BASOPHILS ABSOLUTE AUTO 0.07 K/mm3 (0.00-0.23); BASOPHILS PERCENT AUTO 1 % (0-2); EOSINOPHILS ABSOLUTE AUTO 0.42 K/mm3 (0.00-0.68); EOSINOPHILS PERCENT AUTO 6 % (0-6); Hematocrit 32.7 % (33.0-51.0); Hemoglobin 10.1 g/dL (11.5-16.0); IMMATURE GRAN ABSOLUTE AUTO 0.02 K/mm3 (0.00-0.10); IMMATURE GRAN PERCENT AUTO 0 % (0-1); LYMPHOCYTES ABSOLUTE AUTO 2.44 K/mm3 (0.84-5.20); LYMPHOCYTES PERCENT AUTO 34 % (21-46); MONOCYTES ABSOLUTE AUTO 0.88 K/mm3 (0.16-1.47); MONOCYTES PERCENT AUTO 12 % (4-13); Mean Corpuscular HGB 30.9 pg (26.0-34.0); Mean Corpuscular HGB Conc 30.9 g/dL (31.5-36.5); Mean Corpuscular Volume 100 fL (80-100); Mean Platelet Volume 10.4 fL (9.1-12.4); NEUTROPHILS ABSOLUTE AUTO 3.42 K/mm3 (1.96-9.15); NEUTROPHILS PERCENT AUTO 47 % (41-73); Platelet Count 192 K/mm3 (150-400); RDW Coefficient Variation 19.1 % (11.7-14.2); RDW Standard Deviation 70.9 fL (35.1-46.3); Red Blood Cell Count 3.27 M/mm3 (3.80-5.20); White Blood Cell Count 7.25 K/mm3 (4.00-11.30)
[2019-05-09 14:51] LABS: Troponin I <0.015 ng/mL (0.000-0.040)
[2019-05-09 14:52] LABS: Source, Urine Catheter
[2019-05-09 14:53] LABS: Alanine Aminotransfer (ALT/SGP 23 U/L (12-78); Albumin, Blood 1.7 g/dL (3.4-5.0); Albumin/Globulin Ratio 0.5 (0.8-1.8); Alk Phos 161 U/L (50-136); Anion Gap 3 mmol/L (6-16); Aspartate Aminotrans (AST/SGOT 68 U/L (12-37); Bilirubin, Total 0.3 mg/dL (0.1-1.0); Blood Urea Nitrogen 8 mg/dL (8-24); Bun/Creatinine Ratio 4.6 (12.0-20.0); CO2, Blood 32 mmol/L (21-32); Chloride, Blood 103 mmol/L (98-108); Creatinine, Blood 1.75 mg/dL (0.40-1.00); Globulin, Blood 3.5 g/dL (2.2-4.0); Glomerular Filtration Rate 30 (60-); Glucose, Blood 86 mg/dL (70-99); Potassium, Blood 3.8 mmol/L (3.5-5.5); Sodium, Blood 138 mmol/L (136-145); Total Protein, Blood 5.2 g/dL (6.4-8.2)
[2019-05-09 15:02] LABS: Bilirubin, Urine Neg (Neg); Blood, Urine 2+ (Neg); Glucose Qualitative, Urine Neg (Neg); Ketones, Urine Neg (Neg); Leukocyte Esterase, Urine 3+ (Neg); Nitrite, Urine Neg (Neg); Protein, Urine 2+ (Neg); Urobilinogen, Urine NORM (Normal)
[2019-05-09 15:10] LABS: Appearance, Urine Cloudy (Clear); Color, Urine Yellow (P-Yellow)
[2019-05-09 15:13] LABS: White Blood Cells, Urine TNTC /hpf (0-5)
[2019-05-09 15:14] LABS: Squamous Epithelial Cells Rare /hpf (Few); Yeast/Fungi Urine Few /hpf
[2019-05-09 15:15] LABS: Bacteria Mod /hpf; Red Blood Cells, Urine Not Seen /hpf (0-2)
[2019-05-09 15:16] LABS: Transitional Epithelial Cells Few /hpf (0-Rare)
[2019-05-09] MEDS ORDERED: TRAM50 PO (15:55)
[2019-05-09] MEDS ORDERED: Nystatin15 GM TOP (15:56)
[2019-05-09] MEDS ORDERED: SENN187 PO (16:07)
[2019-05-09 18:12] LABS: Base Excess Venous 6.1 mmol/L; Bicarbonate Venous 28.9 mmol/L (24.0-30.0); PO2 Venous 169 mmHg (38-42); pH Blood Venous 7.34 (7.34-7.37)
--- NOTE | 2019-05-09 19:03 | NUR ---
met with pt pt minimally responsive during conversation. mostly theraputic listening. flora is very distraught. he is not going to change his plan of full care. suggest multidisciplinary team meeting. pt high risk readmit and risk for readmit. will asses kps scale tomorrow after admit completed. will find attempt to find some support for .
--- NOTE | 2019-05-09 19:04 | NUR ---
pt arrived to pcu from ed, report was obtained, pt vs stable. she is very lethargic, got her into bed, called Dr. Moran about consult for endo, that he needs to call him as he isn't software applications architect. He agreed to call him in the morning. call light in reach. report to night RN.
--- NOTE | 2019-05-09 21:30 | NUR ---
CONSULT NOTE PER DAY SHIFT RN REPORT RN SPOKE W/ ADMITTING PHYSICIAN ABOUT CONSULT TO PAEDIATRIC PHYSIOTHERAPIST THAT PROVIDER WAS REAL ESTATE ANALYST AND ADMITTING PROVIDER WOULD NEED TO CONTACT PAEDIATRIC PHYSIOTHERAPIST WHILE REAL ESTATE ANALYST. PER DAY SHIFT RN REPORT IS THAT ADMITTING HOSP [facility] WILL CALL FOR CONSULT WITH REAL ESTATE ANALYST PAEDIATRIC PHYSIOTHERAPIST IN AM ON 05/10.
--- NOTE | 2019-05-09 23:30 | NUR ---
LOW CBG BLOOD GLUCOSE WAS TAKEN AT 2300 D/T PT BEING NPO ACCORDING TO Q6HR ORDER. CBG NOTED TO BE 47 AT THIS TIME. PT ABLE TO WAKE UP TO VERBAL STIMULI AND ANSWER YES/NO QUESTIONS BUT APPEARS VERY LETHARGIC. PROVIDER CALLED AND AMP OF DEXTROSE. MED GIVEN AND PT OBSERVED TO BECOME MORE ALERT AND ABLE TO TALK TO THIS RN IN FULL SENTANCES. PT REPORTS FEELING BETTER. REPEAT CBG TO BE TAKEN TO REEVALUATE.
--- NOTE | 2019-05-10 | NUR ---
REPEAT CBG 94
--- NOTE | 2019-05-10 05:24 | NUR ---
SHIFT SUMMARY PT SLEEPING IN ROOM COMFORTABLY AT THIS TIME. PT HAS ONE EPISODE OF INCREASED LETHARGY FOLLOWED BY CRITICAL LOW CBG LEVEL OF 47. PT WAS IMMEDIATELY GIVEN 1 AMP IV DEXTROSE AND CBG IMPROVED TO 94. PT MENTAL STATUS IMPROVED WELL, SEE PREVIOUS NOTES. RESP EVEN UNLABORED ON 2L NC W/ SATS >95%. PT DENIES PAIN WHEN AT REST, REPORTS ARM AND SHOULDER PAIN WHEN UPPER EXTREMITIES ARE MOVED. DEPP PITTING EDEMA NOTED IN ALL EXTREMITIES, ALL EXTREMITIES EVELATED ON PILLOWS AT LEVEL OF HEART. PT SLEEPING WELL W/ SPOUSE AT BEDSIDE. DENIES CP OR SOB. CALL LIGHT IN REACH.
--- NOTE | 2019-05-10 07:45 | NUR ---
BEDSIDE REPORT REC'D FROM NOC RN. PT NON-VERBAL, NON-RESPONSIVE OTHER THAN WITHDRAWING TO PAINFUL STIMULI. SEVERE GENERALIZED EDEMA HEAD TO TOE. ANTERIOR LS CLEAR. DR. BECKER IN TO SEE, NEW ORDERS REC'D. ASSESSMENT NOTED. VSS. 2L O2 VIA NC IN PLACE. IVF INFUSING TKO, NO S/S OF INFILTRATION AT MEDIPORT SITE, NO ADDITIONAL SWELLING OR REDNESS. PT MOANS AND STIFFENS WITH ADL CARE. CARE REQUIRES AT LEAST 3-4 STAFF TO PERFORM. PT INCONTINENT OF URINE AND BEING DIURESED. ORDER FOR SCHNEIDER PLACEMENT OBTAINED. ASSESSMENT NOTED. WILL MONITOR AND MEDICATE WITH IV MEDS ORDERED, PT UNABLE TO TAKE PO MEDS - DOES NOT WAKE UP TO RESPOND OR DOES NOT FOLLOW COMMANDS. SPOUSE AT BEDSIDE OFF AND ON. CALL LIGHT IN REACH.
[2019-05-10 08:19] LABS: Hematocrit 32.8 % (33.0-51.0); Hemoglobin 9.8 g/dL (11.5-16.0); Mean Corpuscular HGB 29.3 pg (26.0-34.0); Mean Corpuscular HGB Conc 29.9 g/dL (31.5-36.5); Mean Corpuscular Volume 98 fL (80-100); Platelet Count 181 K/mm3 (150-400); RDW Coefficient Variation 19.1 % (11.7-14.2); RDW Standard Deviation 69.4 fL (35.1-46.3); Red Blood Cell Count 3.35 M/mm3 (3.80-5.20)
[2019-05-10 08:37] LABS: Albumin/Globulin Ratio 0.6 (0.8-1.8); Bilirubin, Total 0.3 mg/dL (0.1-1.0); Bun/Creatinine Ratio 3.8 (12.0-20.0); Creatinine, Blood 1.83 mg/dL (0.40-1.00); Globulin, Blood 3.2 g/dL (2.2-4.0); Potassium, Blood 2.9 mmol/L (3.5-5.5); Total Protein, Blood 5.2 g/dL (6.4-8.2)
[2019-05-10 11:36] LABS: Gentamicin, Peak 5.3 ug/mL (4.0-8.0)
--- NOTE | 2019-05-10 12:17 | NUR ---
echocardiogram completed
--- NOTE | 2019-05-10 19:40 | NUR ---
END OF SHIFT NOTE PT HAS MADE A LOT OF PROGRESS TODAY. WHILE GIVING BEDSIDE REPORT BACK TO JUAN ALBERTO DANIELLE, PT WAS ALERT AND SMILING! CBG REMAINED CONSISTENT AND STABLE T/O THE DAY. VSS. ATTEMPTED TO PLACE SCHNEIDER WITH STAFF X4, BY FIRST PREPARING PT FOR PROCEDURE. SHE ATTEMPTED TO COMMUNICATE ALTHOUGH UNINTELLIBLE BUT SHE SEEMED TO UNDERSTAND WHAT WAS BEING SAID AND ATTEMPTED TO COOPERATE. INSERTION WAS UNSUCCESSFUL D/O THE SEVERITY OF SWELLING, NOT ONLY BLE'S BUT GENITALIA, THIGHS, ETC. OBTAINED ORDER FOR PAIN MEDS. USED MULITPLE ABSORB PADS FOR INCONTINENCE. REMOVED ALL WRINKLE, CLOTHING ITEMS, TUBING FROM UNDER SKIN TO PREVENT PRESSURE BREAKDOWN. ORAL CARE PROVIDED WITH COLD ORAL SWABS WELL. TOWARDS END OF SHIFT PT APPEARED TO BECOME MORE ALERT ALTHOUGH STILL VERY DROWSY. ATTEMPTED TO COMMUNICATE MORE ALTHOUGH MOST WAS UNINTELLIBLE. SMILED IN RESPONSE TO CONVERSATION AND ENCOURAGEMENT. SHE WAS REASSURED OFTEN AND REORIENTED OFTEN. NEW ORDERS T/O THE DAY. PT HAD POCT CBG ORDERED Q6 BUT INSULIN WAS ORDERED AC/HS. 1800 POCT WAS OVERLOOKED. NOC RN NOTIFIED SO SHE COULD RECTIFY AND TREAT IF NEEDED. CALL LIGHT AND BELONGINGS IN REACH.
[2019-05-10 21:52] LABS: Gentamicin, Trough 3.5 ug/mL (0.0-1.9)
--- NOTE | 2019-05-11 05:24 | NUR ---
SHIFT SUMMARY PT SLEEPING IN ROOM COMFORTABLY AT THIS TIME. PT AT START OF SHIFT APPEARED MORE ALERT AND ABLE TO TRACK THIS RN WITH EYES AND REPSOND TO SHORT QUESTIONS WITH SHORT ANSWERS. T/O SHIFT PT BECAME MORE LETHARGIC D/T ATIVITY FROM THE DAY AND SLEPT VERY WELL. PT WAS HARDER TO AWAKEN BY VERBAL UPON ENTERING ROOM. AT APPROX 0300 PT SPOUSE CALLED FOR PAIN MEDS FOR PT MOANING AND GRUNTING IN PAIN. THIS RN ASSESSED PT AND PT APPEARED TO HAVE AMS, EYES OPENED BUT UNABLE TO TRACK WITH RN. AFTER DICUSSION WITH ENAMEL BUFFER, THIS RN RETURNED TO ROOM AND PT NOW ABLE TO TRACK THIS RN WITH EYES, AND VERBILIZE PAIN AND WANTING PAIN MEDS. PT WAS MEDICATED PER EMAR. RESP EVEN UNLABORED ON 2L NC W/ SATS >92%. PT NOW RESTING IN ROOM COMFORTABLY. CALL LIGHT IN REACH. SPOUSE AT BEDSIDE.
[2019-05-11 09:21] LABS: BASOPHILS ABSOLUTE AUTO 0.02 K/mm3 (0.00-0.23); BASOPHILS PERCENT AUTO 0 % (0-2); EOSINOPHILS ABSOLUTE AUTO 0.02 K/mm3 (0.00-0.68); EOSINOPHILS PERCENT AUTO 0 % (0-6); Hematocrit 33.4 % (33.0-51.0); IMMATURE GRAN ABSOLUTE AUTO 0.08 K/mm3 (0.00-0.10); IMMATURE GRAN PERCENT AUTO 1 % (0-1); LYMPHOCYTES ABSOLUTE AUTO 1.67 K/mm3 (0.84-5.20); LYMPHOCYTES PERCENT AUTO 19 % (21-46); MONOCYTES ABSOLUTE AUTO 0.56 K/mm3 (0.16-1.47); MONOCYTES PERCENT AUTO 6 % (4-13); Mean Corpuscular HGB 29.8 pg (26.0-34.0); Mean Corpuscular HGB Conc 29.9 g/dL (31.5-36.5); Mean Corpuscular Volume 99 fL (80-100); Mean Platelet Volume 10.2 fL (9.1-12.4); NEUTROPHILS ABSOLUTE AUTO 6.55 K/mm3 (1.96-9.15); NEUTROPHILS PERCENT AUTO 74 % (41-73); Platelet Count 226 K/mm3 (150-400); RDW Coefficient Variation 19.4 % (11.7-14.2); Red Blood Cell Count 3.36 M/mm3 (3.80-5.20)
[2019-05-11 09:38] LABS: Gentamicin, Random 2.5 ug/Ml
[2019-05-11 14:08] LABS: Bun/Creatinine Ratio 3.3 (12.0-20.0); Calcium, Blood 7.9 mg/dL (8.5-10.1); Creatinine, Blood 2.11 mg/dL (0.40-1.00); Potassium, Blood 3.7 mmol/L (3.5-5.5)
--- NOTE | 2019-05-11 17:41 | NUR ---
SHIFT SUMMARY PT ALERT AND OPENING EYES, BUT IS NOT TRACKING OR ANSWERING QUESTIONS. PT MUMBLING AND DIFFICULT TO UNDERSTAND. VS STABLE. PT DID HAVE ONE LOW BP THIS AFTERNOON, BUT HAS IMPROVED. PT HAS EDEMA THROUGHOUT. BLE 4+ PITTING EDEMA TO BLE. PT REPOSITIONED WITH LOWER LEGS ELEVATED AND BP IMPROVED. PT HAS BEEN INCONTINENT OF BLADDER AND SOAKING THE ATTENDS. PT REPOSITIONED Q2H. PT YELLING OUT WITH REPOSITIONING. PT MOVED TO LIFT ROOM THIS AFTERNOON. WILL CONTINUE TO MONITOR AND REPORT TO ONCOMING RN.
[2019-05-11 19:42] LABS: Gentamicin, Random 2.4 ug/Ml; Vancomycin, Trough 19.9 ug/mL (5.0-10.0)
--- NOTE | 2019-05-12 05:38 | NUR ---
SHIFT SUMMARY PT HAS REMAINED ALERT AND SOMEWHAT ORIENTED THROUGHOUT THE NIGHT. WAKES TO VERBAL STIMULI AND WILL OPEN EYES SPONTANIOUSLY. PT WILL RESPOND TO NAME AND RESPOND WITH SINGLE WORDS THAT ARE OCCASIONALLY APPROPRIATE. PT ALSO ABLE TO SHAKE HEAD YES OR NO WHEN PROMPTED. VSS. MOSLTY COOPERATIVE WITH CARE. PT MUCH MORE COOPERATIVE WITH TURNING AND CHANGING WHEN STEP BY STEP EXPLANATIONS AND REASSURANCE GIVEN. PT REMAINS ON BEDREST, LIFT UTILIZED FOR TURNING. O2 SATS HAVE REMAINED >90% ON 2L VIA NASAL CANNULA. PT RESTED WELL THROUHGOUT MUCH OF THE NIGHT. SPOUSE HAS REMAINED AT BEDSIDE. PT ANS SPOUSE EDUCATED EXTENSIVELY ON CARE THROUGHOUT THE NIGHT. NO OTHER CHANGES NOTED FROM INITIAL ASSESSMENT. WILL CONTINUE TO MONITOR AND REPORT TO ONCOMING SHIFT RN. BED IN LOW POSITION, CALL LIGHT IN REACH, BED ALARM SET FOR SAFETY.
[2019-05-12 08:42] LABS: BASOPHILS ABSOLUTE AUTO 0.01 K/mm3 (0.00-0.23); BASOPHILS PERCENT AUTO 0 % (0-2); EOSINOPHILS PERCENT AUTO 0 % (0-6); Hematocrit 31.3 % (33.0-51.0); Hemoglobin 9.8 g/dL (11.5-16.0); IMMATURE GRAN ABSOLUTE AUTO 0.05 K/mm3 (0.00-0.10); IMMATURE GRAN PERCENT AUTO 1 % (0-1); LYMPHOCYTES ABSOLUTE AUTO 1.47 K/mm3 (0.84-5.20); LYMPHOCYTES PERCENT AUTO 22 % (21-46); MONOCYTES ABSOLUTE AUTO 0.43 K/mm3 (0.16-1.47); MONOCYTES PERCENT AUTO 6 % (4-13); Mean Corpuscular HGB Conc 31.3 g/dL (31.5-36.5); NEUTROPHILS ABSOLUTE AUTO 4.89 K/mm3 (1.96-9.15); NEUTROPHILS PERCENT AUTO 71 % (41-73); Platelet Count 255 K/mm3 (150-400); RDW Coefficient Variation 19.7 % (11.7-14.2); RDW Standard Deviation 68.8 fL (35.1-46.3); Red Blood Cell Count 3.27 M/mm3 (3.80-5.20); White Blood Cell Count 6.85 K/mm3 (4.00-11.30)
[2019-05-12 08:43] LABS: Mean Corpuscular Volume 96 fL (80-100)
--- NOTE | 2019-05-12 09:00 | NUR ---
LANTUS IS HELD UNTIL AVAILABLE FROM PHARMACY
[2019-05-12 09:03] LABS: Gentamicin, Random 1.7 ug/Ml
[2019-05-12 09:09] LABS: Albumin, Blood 2.1 g/dL (3.4-5.0); Albumin/Globulin Ratio 0.6 (0.8-1.8); Bilirubin, Total 0.4 mg/dL (0.1-1.0); Bun/Creatinine Ratio 4.9 (12.0-20.0); Calcium, Blood 7.7 mg/dL (8.5-10.1); Creatinine, Blood 2.44 mg/dL (0.40-1.00); Globulin, Blood 3.6 g/dL (2.2-4.0); Phosphorus, Blood 5.7 mg/dL (2.5-4.9); Potassium, Blood 3.9 mmol/L (3.5-5.5); Total Protein, Blood 5.7 g/dL (6.4-8.2)
[2019-05-12 09:16] LABS: Free Thyroxine 0.46 ng/dL (0.70-1.60)
[2019-05-12 09:22] LABS: Triiodothyronine, Free <0.50 pg/mL (2.18-3.98)
--- NOTE | 2019-05-12 14:44 | NUR ---
DOBHOFF PLACEMENT CONFIRMED VIA CHEST XRAY, CONTINUOUS FEEDING BEGAN AT THIS TIME
--- NOTE | 2019-05-12 18:01 | NUR ---
SHIFT NOTE PT WITH INTERMITTENT ONE WORD ANSWERS, PT DOES TURN HEAD AND EYES TO VERBAL STIMULI. SPOUSE IS AT BEDSIDE PT EXPRESSED MANY CONCERNS STATING THAT HE FEELS THAT PROVIDERS HAVE INTENTIONALLY HARMED PT, EXPRESSED ANGER THAT DR HEATH STOPPED BY TO CHECK ON PT STATING THAT SHE DID NOT PROVIDE THE CARE HE WISHED WHILE PT WAS AT [facility], S/O PASSIVE AGGRESIVE WITH STAFF AND GETTING CLOSE TO STAFF'S FACE TO SPEAK. PT ONLY HAD 1 VOID TODAY, ATTENDS WAS CHANGED, NO ADDITIONAL SKIN BREAKDOWN NOTED. EDEMA IS NOW PRESENT TO PERIAREA THAT WAS NOT PRESENT AT THE BEGINGING OF SHIFT. DOBHOFF PLACED THIS AFTERNOON, WHICH WAS CONFIRMED PLACEMENT VIA CHEST XR THAT WAS READ BACK TO THIS RN BY ADI MENDOZA, CONTINUOUS TUBE FEEDING IS PROGRESS. SPOUSE EXPRESSED UPSET THAT PT IS NOT BEING FED BY MOUTH, HE IS EDUCATED WHY TUBE FEEDING IS BEING PERFORMED BUT DOES NOT SEEM TO UNDERSTAND DESPITE EXTENSIVE EUDCATION.
[2019-05-12 20:01] LABS: Vancomycin, Trough 27.4 ug/mL (5.0-10.0)
[2019-05-13 06:05] LABS: Anion Gap 8 mmol/L (6-16); Blood Urea Nitrogen 27 mg/dL (8-24); CO2, Blood 30 mmol/L (21-32); Calcium, Blood 7.8 mg/dL (8.5-10.1); Chloride, Blood 99 mmol/L (98-108); Creatinine, Blood 2.45 mg/dL (0.40-1.00); Gentamicin, Random 1.2 ug/Ml; Glomerular Filtration Rate 20 (60-); Glucose, Blood 405 mg/dL (70-99); Magnesium, Blood 2.3 mg/dL (1.6-2.4); Phosphorus, Blood 4.1 mg/dL (2.5-4.9); Potassium, Blood 3.8 mmol/L (3.5-5.5); Sodium, Blood 137 mmol/L (136-145); Vancomycin, Random 24.7 ug/mL
--- NOTE | 2019-05-13 06:15 | NUR ---
SHIFT SUMMARY PT HAS REMAINED INTERMITTENTLY ALERT THROUGHOUT THE NIGHT WHEN NOT ASLEEP. ALERT TO NAME AND LOOKS AT STAFF WHEN BEING TALKED TO. PT DOES NOT SPEAK CONSISTANT WORDS OR VERBALLY EXPRESS NEEDS AT THIS TIME, BUT IS ABLE TO SHAKE HEAD YES OR NO. VSS. HAS BECOME MORE COOPERATIVE WITH CARE THIS SHIFT WHEN CARE PROCESSES EXPLAINED WELL. MEDICATED TWICE FOR PAIN THROUGHOUT THE NIGHT WITHOUT ANY NOTED CHANGE TO MENTATION. PT REMAINS INCONTINENT OF URINE AND HAS BECOME MORE COOPERATIVE WITH TURNING. DOBHOFF CONTINUES TO INFUSE WITH TUBE FEEDING AT 50 ML/HR. SPOUSE HAS REMAINED AT BEDSIDE. NO OTHER CHANGES NOTED FROM INITIAL ASSESSMENT. WILL CONTINUE TO MONITOR AND REPORT TO ONCOMING SHIFT RN. BED IN LOW POSITION, CALL LIGHT IN REACH.
--- NOTE | 2019-05-13 14:07 | NUR ---
BLOOD GLUCOSE NOTED TO BE [address] BECKER NOTIFIED. PER DR BECKER GO AHEAD AND GIVE 12 UNITS REGULAR INSULIN PER MEDIUM SLIDING SCALE AT THIS TIME. ROBITUSSIN CHANGED TO DIABETIC. WILL CONT TO MONITOR.
--- NOTE | 2019-05-13 15:08 | NUR ---
PT MUCH MORE ALERT AND AWAKE THIS AFTERNOON. FOLLOWING DIRECTIONS AND HAS MORE STRENGTH WITH HANDS AND ABLE TO WIGGLE TOES. PT CALLING OUT FREQUENTLY ASKING FOR WATER. TRIAL OF ICE CHIPS DONE AND SPOONFULL OF WATER GIVEN WITHOUT DIFFICULTY. SPOKE WITH DR WALKER WHO HAS OK'D FOR [facility] SOFT DIET WITH ASPIRATION PRECAUTIONS LONG PT IS ALERT ENOUGH TO EAT WITH ASSISTANCE. MIGUEL CONT TO TUBE FEED AT THIS TIME.
--- NOTE | 2019-05-13 17:48 | NUR ---
BLOOD GLUCOSE OF 455. REGULAR INSULIN OF 12 UNITS GIVEN PER MEDIUM SLIDING SCALE. DR BECKER NOTIFIED, ORDER RECEIVED FOR ONE TIME DOSE OF 4 UNITS FOR A TOTAL OF 16 UNITS.
--- NOTE | 2019-05-13 18:04 | NUR ---
SHIFT SUMMARY- THIS AM PT DID NOT RESPOND MUCH BUT WOULD ANSWER YES/NO QUESTIONS, VERY MINIMAL MOVEMENT TO HANDS AND NONE TO BLE. LS DIMINISHED, ATTEMPTED TO TITRATE TO RA BUT SATS DECREASED TO 80'S, PLACED BACK ON 2L N/C. THIS AFTERNOON PT BECAME MORE ALERT AND WAS CALLING OUT FOR WATER, PT MOVING HANDS AND ABLE TO WIGGLE TOES. PT [facility]ED ON [facility] SOFT ADA DIET, PT TOLERATING WELL WITH ASPIRATION PRECAUTIONS AND FEEDING ASSISTANCE. GLUCOSES ELEVATED IN THE 400'S, PT REMAINS ON REGULAR MEDIUM SLIDING SCALE INSULIN WITH AN ADDITIONAL 4 UNITS GIVEN THIS EVENING PER DR BECKER. TELE SR AT 74. PT REMAINS WITH EDEMA T/O. TUBE FEEDINGS REMAIN AT 50ML CONTINUOUS WITH 240 ML FLUSH Q4H, TOLERATING WELL NO RESIDUAL NOTED. NO OTHER ACUTE CHANGES THIS SHIFT.
--- NOTE | 2019-05-13 22:45 | NUR ---
PROVIDER CONTACTED PT WITH ELEVATED GLUCOSE OF 463 @ 1999. ADDITIONAL DOSE OF HIGH SS INSULIN GIVEN @ 2000. RECHECK @ 2236 SHOWS CBG OF 440. PROVIDER, SADAF Yee UPDATED ON PATIENT BLOOD GLUCOSE. ORDERS RECEIVED FOR ADDITION 4 UNITS TO BE GIVEN ONE TIME IN ADDITION TO SCHEDULED INSULIN ORDERS. PROVIDER TO INPUT ORDER. WILL ADMINISTER UPON REECIEPT.
[2019-05-14 04:33] LABS: Anion Gap 5 mmol/L (6-16); Blood Urea Nitrogen 34 mg/dL (8-24); Bun/Creatinine Ratio 14.7 (12.0-20.0); CO2, Blood 34 mmol/L (21-32); Calcium, Blood 7.8 mg/dL (8.5-10.1); Chloride, Blood 98 mmol/L (98-108); Creatinine, Blood 2.32 mg/dL (0.40-1.00); Free Thyroxine 0.65 ng/dL (0.70-1.60); Glomerular Filtration Rate 22 (60-); Glucose, Blood 423 mg/dL (70-99); Magnesium, Blood 2.3 mg/dL (1.6-2.4); Phosphorus, Blood 3.3 mg/dL (2.5-4.9); Potassium, Blood 3.6 mmol/L (3.5-5.5); Sodium, Blood 137 mmol/L (136-145); Vancomycin, Random 19.5 ug/mL
[2019-05-14 04:39] LABS: Gentamicin, Random 0.8 ug/Ml; Triiodothyronine, Free 1.53 pg/mL (2.18-3.98)
--- NOTE | 2019-05-14 05:25 | NUR ---
SHIFT SUMMARY PT HAS REMAINED MUCH MORE ALERT THIS SHIFT. PT ABLE TO STATE DATE AND SPEAK IN SHORT SENTENCES. PT ALSO ABLE TO MAKE NEEDS KNOWN MUCH MORE EFFICIENTLY. PT ASSISTING WITH TURNING, REMAINS FAIRLY WEAK, BUT MUCH IMPROVED OVER LAST TWO NIGHTS. VSS. HAS BEEN COOPERATIVE WITH CARE. PT TOLERATING SIPS OF WATER WELL WHILE SITTING UP HIGH IN BED. SPOUSE EDUCATED ON ASPIRATION PRECAUTIONS AND INFORMED OF RISK OF ASPIRATION IF NOT SITTING UPRIGHT- VERBALIZED UNDERSTANDING. MEDICATED ONCE FOR PAIN THAT PATIENT REPORTS IN HER BACK, DECREASED WITH ORDERED MEDICATION. LUNG SOUNDS WHEEZY AT START OF SHIFT THAT IMPROVED WITH BREATHING TX. COUGH BECOMING STRONGER AND PT ABLE TO CLEAR SECRETIONS WHEN PRESENT. O2 SATS HAVE REMAINED >90% ON 1-2L VIA NASAL CANNULA. BLOOD GLUCOSE REMAINS ELEVATED IN THE 400s THROUGHOUT THE NIGHT. SLIDING SCALE CHANGED TO HIGH SS, ADDITIONAL INSULIN DOSES GIVEN THROUGHOUT THE NIGHT WITH SOME IMPROVEMENT. TUBE FEEDING CONTINUES TO INFUSE @ 50 ML/HR WITH NO NOTED RESIDUAL. NO OTHER CHANGES NOTED FROM INITIAL ASSESSMENT. WILL CONTINUE TO MONITOR AND REPORT TO ONCOMING SHIFT RN. BED IN LOW POSITION, CALL LIGHT IN REACH.
--- NOTE | 2019-05-14 09:00 | NUR ---
AM NOTE. ASSUMED CARE OF PT APROX 0700. PT IS A&Ox4 TODAY, PER REPORT THIS IS AN IMPROVMENT. PT IS SLOW TO RESPOND BUT ANSWERS APPROP. AT THE BEDSIDE. PT'S VS STABLE. PT HAS EDEMA T/O. L/S UPPER AIRWAY WHEEZES HEARD CLEAR/DIM IN THE MID/LOWER BASES. PT IS ON 1L NC WITH O2 SATS >90%. WILL CONTINUE TO MONITOR.
--- NOTE | 2019-05-14 16:59 | NUR ---
Spoke with PCU clinical coordinator Thea and Pt advocate and discussed case. Pt resting in recliner chair upon arrival. Pt's daughter present during visit. Pt denies pain at this time. Pt does report dyspnea and reports pain when taking a deep breath. Shallow respirations noted. Pt not very verbal during visit but does smile occasionally when daughter discusses Pt's dog. Listened as daughter expresses concerns regarding care Pt received at SNF. Continued to listen to frustrations and validated concerns. Answered questions and provided education regarding UTIs and pneumonia. Daughter reports goal is for Pt to discharge home. She reports understanding of needing sr account executive caregivers at home for Pt to be safe. Daughter reports Pt just finished medicaid process and has been approved. Pt is agreeable for continued therapeutic visits. Spoke with bedside SHASHI Ny and SHASHI Sidhu and discussed case further. Palliative Care will remain available for continued therapeutic visits.
--- NOTE | 2019-05-14 17:56 | NUR ---
SHIFT SUMMARY. NO ACUTE NEGATIVE CHANGES NOTED THIS SHIFT. PT HAS BEEN UP IN RECLINER CHAIR FOR MOST OF THE DAY. PT HAS BEEN ON 1L NC WITH O2 SATS >93%. DOBHOFF STILL IN PLACE RUNNING AT 25MLS/HR. PT ATE APROX 15% OF HER BREAKFAST, 25% OF HER LUNCH AND DINNER 20%. VS HAVE BEEN STABLE. PT DENIES PAIN. PT'S AND DAUGHTER AT THE BEDSIDE OFF AND ON THIS SHIFT. CALL LIGHT IN REACH, BED IS LOCKED AND LOW WILL CONTINUE TO MONITOR
--- NOTE | 2019-05-14 23:40 | NUR ---
CBG OF 448. PROVIDER CALLED AND NOTIFIED. NO NEW ORDERS RECIEVED. INSULIN TO BE GIVEN PER EXISTING ORDERS.
[2019-05-15 04:23] LABS: Anion Gap 4 mmol/L (6-16); Blood Urea Nitrogen 36 mg/dL (8-24); Bun/Creatinine Ratio 17.7 (12.0-20.0); CO2, Blood 34 mmol/L (21-32); Calcium, Blood 8.2 mg/dL (8.5-10.1); Chloride, Blood 95 mmol/L (98-108); Creatinine, Blood 2.03 mg/dL (0.40-1.00); Free Thyroxine 0.79 ng/dL (0.70-1.60); Gentamicin, Random 2.4 ug/Ml; Glomerular Filtration Rate 25 (60-); Glucose, Blood 372 mg/dL (70-99); Magnesium, Blood 2.3 mg/dL (1.6-2.4); Phosphorus, Blood 3.4 mg/dL (2.5-4.9); Potassium, Blood 3.4 mmol/L (3.5-5.5); Sodium, Blood 133 mmol/L (136-145); Vancomycin, Random 15.5 ug/mL
[2019-05-15 04:24] LABS: Triiodothyronine, Free 3.27 pg/mL (2.18-3.98)
--- NOTE | 2019-05-15 05:19 | NUR ---
SHIFT SUMMARY VSS this shift, no acute concerns to note overnight. Pt states "I can't breathe" oxygen sats throughout the night consistantly 97-98% on 2L NC. Pt not in apparent sign of distress throughout night, breathing easy and unlabored. Pt repositioned, lungs ascultated multiple times with no changes from initial assessment, RT in to assess pt and to give PRN breathing tx throughout night. Pt with continued complaints. See shift assessment for detailed assessment. Pt incontinent throughout shift, saturating attends x3. Pt unable to call to let staff know about need to void. Pt alert and oriented, but only responding with a couple words. Pt appears flat affect. Pt turned q2 per orders, CBG q6 with results >400; provider called and notified per orders. Tube feeding on continuous per orders, mediport accessed and running TKO. Pt at bedside throughout night. Will continue to monitor until handoff given to day RN.
--- NOTE | 2019-05-15 08:32 | NUR ---
AM NOTE. ASSUMED CARE OF PT APROX 0700. PT IS A&Ox3 UNABLE TO STATE THE YEAR/DATE. PT'S VS STABLE AT THIS TIME. PROVIDER AT THE BEDSIDE AND SPOKE WITH PT AND , BOTH ARE IN AGREEMENT OF THE PLAN OF CARE. DOBHOFF IN PLACE AND PATENT, PER PROVIDER WILL REMOVE. PT HAS 2+ PITTING EDEMA BLE, BUE AND GENERALIZED. PT IS INCONT OF URINE. WILL CONTINUE TO MONITOR.
--- NOTE | 2019-05-15 10:59 | NUR ---
Dobhoff was discontinued. The pt tolerated it well. ORal care was provided just following the dobhoff discontinuation.
--- NOTE | 2019-05-15 11:00 | NUR ---
PT TRANSFER... PT WAS TRANSFERED TO MEDICAL FLOOR. DOBHOFF REMOVED BY RN DUNIA AND BIOCHEMISTRY PROFESSOR. REPORT WAS CALLED TO RECEIVING RN. ALL OF PT'S BELONGINGS WERE PACKED AND SENT WITH THE PT. PT'S VS STABLE.
--- NOTE | 2019-05-15 13:59 | NUR ---
Pt visit this afternoon. Pt reports having pain when she takes a deep breath. Pt's at bedside during visit. Answered questions and concerns. Listened as expressed frustrations regarding the care Pt received at SNF. Validated 's concerns. Offered Pt water and assisted with holding cup. Educated Pt and on the importance of using the IS often. Educated on the importance of adequate water to help thin secretions. No other concerns reported at this time. Palliative Care will remain available.
--- NOTE | 2019-05-15 14:23 | NUR ---
CALL TO DR BECKER PER ANUJ DANIELLE PT C/O SOB, SATS IN 90'S. DR BECKER REPORTS PT THE SAME WHEN HE SAW HER THIS MORNING. ASKED DR IF PT COULD HAVE SOMETHING FOR ANXIETY. DR HESITANT TO ORDER ANYTHING THAT COULD SEDATE HER. DR BECKER STATED HE WILL LOOK INTO IT
--- NOTE | 2019-05-15 17:53 | NUR ---
PT TRANSFERED FROM PCU THIS MORNING. PT TO THE FLOOR IN HOSPITAL BED. PT ON 3L O2 UPON ARRIVING TO ROOM. PT COMPLAINED THAT SHE FELT LIKE SHE WAS HAVING A DIFFICULT TIME BREATHING. O2 SATS TAKEN, SATS REMAINED AT 95 OR ABOVE AT REST. PT IS HAS SEVERE EDEMA THROUGHOUT HER BODY. PT ABLE TO MOVE ARMS, BUT UNABLE TO DEMONSTRATE MUCH MOVEMENT OTHERWISE. PT'S IN ROOM WITH PATIENT THROUGH MUCH OF THE SHIFT. PT CURRENTLY IN ROOM EATING DINNER.
--- NOTE | 2019-05-16 04:10 | NUR ---
Shift Summary Patient has been sleeping intermittently between cares. Assisted to reposition q2h and changed incontinence briefs for incontinence. She has been pleasant and cooperative. She has been alert and responsive, but with minimal verbal communication. is at bedside.
--- NOTE | 2019-05-16 17:58 | NUR ---
SHIFT SUMMARY PATIENT IS PLEASANT, ALERT AND ORIENTED. DOES NOT WANT TO TALK MUCH. SHE HAS BEEN UP IN THE CHAIR FOR MEALS TODAY AND WORKED WITH PHYSICAL THERAPY. NO ACUTE CONCERNS AT THIS TIME. HAS BEEN VERY HELPFUL.
--- NOTE | 2019-05-17 05:11 | NUR ---
Pt repositioned and administered meds as ordered - see MAR for details. Was changed x 2 - including the lift sheet for voiding on it. at bedside intermittent voicing his disapproval at being awakened for care. Call light in reach. No noted signs of acute distress as of this writing.
[2019-05-17 05:54] LABS: Free Thyroxine 0.72 ng/dL (0.70-1.60)
[2019-05-17 05:57] LABS: Thyroid Stimulating Hormone 8.13 uIU/mL (0.360-4.800); Triiodothyronine, Free 1.43 pg/mL (2.18-3.98)
--- NOTE | 2019-05-17 06:08 | NUR ---
Pt and refusing to allow staff to check/assess for incontinence this attempt. Pt voiced she was dry and upset re being awakened again. No noted acute distress. Will have day shift follow up.
--- NOTE | 2019-05-17 17:43 | NUR ---
Hypertension and Port Access L/M on Dr. Hayes's phone RE hypertension (179/) and orders to access port.
--- NOTE | 2019-05-17 18:31 | NUR ---
Shift Summary Received report from SHASHI Michael and assumed care around 1545. Pt has been up in chair for meals with lift, incontinent for all voids, continent of BM. Had 3 BM's today. No coverage required for blood sugars. Dr. Hayes called back and gave orders for Port Access and PRN Miralax; however, no new orders for BP (179/82) given to this RN. No other concerns at this time.
--- NOTE | 2019-05-17 19:34 | NUR ---
bp WAS 179/82 AND PT/ WANTED pEPCID REORDERED. CALL PLACED TO DR MCKEON, ORDERS OBTAINED FOR PEPCID 20MG AT HS AND HE SAID HE WOULD REVIEW TO SEE IF BP MED WAS NEEDED. - SEE MAR FOR DETAILS.
--- NOTE | 2019-05-17 23:09 | NUR ---
RODRICK DEACCESSED AND RE ACCESSED USING STERILE TECHNIQUE. DOD NOT GET BLOOD RETURN, BUT PT AND VOICED THAT NO BLOOD RETURN WAS NOTED WITH ALL HER PREVIOUS ACCESS ATTEMPTS EITHER. ns INFUSING AT 10 ML/HR FOR KVO. WILL MONITOR FOR ANY POSSIBLE ADVERSE SIGNS. CALL LIGHT IN REACH.
--- NOTE | 2019-05-18 04:18 | NUR ---
WAS ASSISTED WITH BEDPAN AT , ALSO MEDIPORT WAS REACCESSED AND THEN REACCESSED WITH STERILE TECHNIQUE HAD BEEN ABOUT A WEEK SINCE LAST TIME ACCESSED. PT AND VOICED DESIRES TO REST, VOICED FRUSTRATION OF INTERMITTENT AWAKENINGS FOR TREATMENTS, CARE. DISCUSSED NEED TO COMPLY WITH MEDICAL REGAMINE FOR PTS HEALTH. cALL LIGHT IN REACH.
--- NOTE | 2019-05-18 06:26 | NUR ---
Dr Hayes was at bedside to assess pt, voiced pt "a little tight" in regards to resps. Nurse discussed pt refusal for meds and treatments during the night when nurse and RT would try to administer them. MD voiced understanding. Stated she could wait until RT gave next scheduled treatment.
[2019-05-18 07:08] LABS: BASOPHILS ABSOLUTE AUTO 0.02 K/mm3 (0.00-0.23); BASOPHILS PERCENT AUTO 0 % (0-2); EOSINOPHILS ABSOLUTE AUTO 0.19 K/mm3 (0.00-0.68); EOSINOPHILS PERCENT AUTO 2 % (0-6); Hematocrit 30.3 % (33.0-51.0); Hemoglobin 9.7 g/dL (11.5-16.0); IMMATURE GRAN ABSOLUTE AUTO 0.13 K/mm3 (0.00-0.10); IMMATURE GRAN PERCENT AUTO 1 % (0-1); LYMPHOCYTES ABSOLUTE AUTO 1.18 K/mm3 (0.84-5.20); LYMPHOCYTES PERCENT AUTO 13 % (21-46); MONOCYTES ABSOLUTE AUTO 0.62 K/mm3 (0.16-1.47); MONOCYTES PERCENT AUTO 7 % (4-13); Mean Corpuscular Volume 94 fL (80-100); Mean Platelet Volume 10.9 fL (9.1-12.4); NEUTROPHILS ABSOLUTE AUTO 7.17 K/mm3 (1.96-9.15); NEUTROPHILS PERCENT AUTO 77 % (41-73); Platelet Count 147 K/mm3 (150-400); RDW Coefficient Variation 19.8 % (11.7-14.2); RDW Standard Deviation 64.3 fL (35.1-46.3); Red Blood Cell Count 3.23 M/mm3 (3.80-5.20); White Blood Cell Count 9.31 K/mm3 (4.00-11.30)
[2019-05-18 07:34] LABS: Albumin, Blood 2.3 g/dL (3.4-5.0); Albumin/Globulin Ratio 0.6 (0.8-1.8); Bilirubin, Total 0.5 mg/dL (0.1-1.0); Bun/Creatinine Ratio 22.9 (12.0-20.0); Calcium, Blood 8.1 mg/dL (8.5-10.1); Creatinine, Blood 1.53 mg/dL (0.40-1.00); Globulin, Blood 3.6 g/dL (2.2-4.0); Total Protein, Blood 5.9 g/dL (6.4-8.2)
--- NOTE | 2019-05-18 10:14 | NUR ---
SPOKE WITH DR. MCKEON THIS MORNING. PATIENT'S BLOOD SUGAR WAS LOW AND SHE IS NOT WANTING TO EAT. CURRENTLY SHE IS IN THE CHAIR AND SHE GOT HALF A DOSE OF LANTUS PER DR. MCKEON'S ORDER. AWAITING HER TO RETURN SO SHE MAY WORK WITH PHYSICAL THERAPY.
--- NOTE | 2019-05-18 11:14 | NUR ---
patient refusing care today, worse off than yesterday. she got a bed bath and has been up in the chair, everything is negative. she refuses to eat and she was given a half dose of lantus this am to avoid hypoglycemia.
[2019-05-18 14:10] LABS: PCO2 Arterial 67.2 mmHg (35-45); PO2 Arterial 71.4 mmHg (80-100); pH Blood Arterial 7.42 (7.35-7.45)
[2019-05-18 15:52] LABS: Source, Urine Catheter
[2019-05-18 16:31] LABS: Appearance, Urine Hazy (Clear); Bilirubin, Urine Neg (Neg); Blood, Urine 3+ (Neg); Color, Urine Yellow (P-Yellow); Glucose Qualitative, Urine Neg (Neg); Ketones, Urine Neg (Neg); Leukocyte Esterase, Urine 3+ (Neg); Nitrite, Urine Neg (Neg); Protein, Urine 2+ (Neg); Urobilinogen, Urine NORM (Normal)
[2019-05-18 16:54] LABS: White Blood Cells, Urine 50-100 /hpf (0-5)
[2019-05-18 16:55] LABS: Bacteria Mod /hpf; Squamous Epithelial Cells Rare /hpf (Few); Yeast/Fungi Urine Few /hpf
--- NOTE | 2019-05-18 18:58 | NUR ---
SHIFT SUMMARY PATIENT HAS HAD AN EVENTFUL DAY. STARTED THE DAY WITH A LOW BLOOD SUGAR. SPOKE WITH DR. MCKEON WHO ORDERED HALF A DOSE OF LANTUS INSTEAD OF A FULL DOSE. POTASSIUM WAS ALSO LOW. THIS WORKED UNTIL WE CHECKED THE PATIENT'S BLOOD SUGAR AT 1130 AND HER BLOOD SUGAR WAS 47. SHE WAS MILDLY CONFUSED AND STARTING TO GET WORSE. PATIENT WAS GIVEN ORANGE JUICE WITH SUGAR IN IT. SPOKE WITH DR. MCKEON AGAIN HER MEDIPORT WAS REACCESSED. DR. MCKEON WAS INFORMED OF THE LOW BLOOD SUGARS AROUND 1200 AND REQUESTED WE CONTINUE TO MONITOR TO SEE IF THE BLOOD SUGAR FALLS. PATIENT'S CONFUSION GOT WORSE THROUGHOUT THE DAY AND SHE BEGAN TO LOOK DUSKY, CALLED DR. MCKEON AT 1330 AND GOT ORDERS FOR A CONTINUOUS BIOX, STAT ABG, AND A STAT CHEST XRAY. ALL RESULTS WERE CALLED TO DR. MCKEON AT 1440. ORDERS WERE PLACED FORA SCHNEIDER CATHETER FOR STRICT I&O WELL ONE DOSE OF LASIX IV 40MG. SCHNEIDER WAS PLACED AND PATIENT WAS GIVEN THE DOSE OF LASIX. FAMILY WAS ENCOURAGED TO CONTINUE TO HELP THE PATIENT WITH HER MEALS SHE NEEDED MORE HELP TODAY. PATIENT WAS ALSO GIVEN BREATHING TREATMENTS. AT 1700 DR. MCKEON CAME IN TO SEE THE PATIENT, EXPLAINED THE FINDINGS TO THE PATIENT AND HER AT THE TIME AND WE AWAITED FURTHER ORDERS. SHE HAD A CHANGE IN POTASSIUM. PATIENT IS CURRENTLY ON A CONTINUOUS PULSE OXIMETER, AND WAITING FOR A NEW ONE. PATIENT REPORTS ABDOMINAL PAIN AND HER ABDOMEN IS NONTENDER, SOFT, ALL BOWEL SOUNDS IN ALL 4 QUADRANTS.
--- NOTE | 2019-05-18 20:30 | NUR ---
IN ROOM AND DOING PATIENT CARE. OFFERED TO ASSIT. REFUSED.ORAL CARE AND PM CARE DONE
--- NOTE | 2019-05-19 03:59 | NUR ---
SHIFT SUMMARY AOX4. LS VERY TIGHT, BREATHING TX Q4. 3L O2, PT C/O SOB AT TIMES. NAUSEA HAS BEEN MAIN COMPLAINT THIS AM. PT THREW UP EARLIER AND ZOFRAN GIVEN @ 0400. EQUIPMENT TO SUCTION IN THE ROOM. PAIN RATED 8/10 IN ABDOMEN. 3+ EDEMA IN BLE'S AND 2+ IN BUE'S. SCATTERED BRUISING. REDNESS IN GROIN AND UNDER BREASTS, NYSTATIN APPLIED. MEDIPORT ACCESSED AND NS GOING @ 10ML/HR. SCHNEIDER IS DRAINING CLEAR YELLOW. AC AND HS - 136, SPOT CHECK THIS AM AROUND 0400 WAS 74. CONT PULSE OX. 0500 ABG SCHEDULED. PT DID NOT WANT TO BE WOKEN UP DURING THE NIGHT SO PT WAS ABLE TO REST MOST OF THE NIGHT. UNSURE OF DC PLAN AT THIS TIME.
[2019-05-19 04:21] LABS: Albumin, Blood 2.3 g/dL (3.4-5.0); Albumin/Globulin Ratio 0.6 (0.8-1.8); Bilirubin, Total 0.5 mg/dL (0.1-1.0); Bun/Creatinine Ratio 19.8 (12.0-20.0); Creatinine, Blood 1.77 mg/dL (0.40-1.00); Globulin, Blood 3.7 g/dL (2.2-4.0); Potassium, Blood 3.2 mmol/L (3.5-5.5)
--- NOTE | 2019-05-19 05:27 | NUR ---
RT REPORTED THAT PT REFUSED ABG THIS AM AND THAT SHE WILL TRY AGAIN LATER.
--- NOTE | 2019-05-19 14:26 | NUR ---
Clinical Visit: Spoke with the pt. She has been refusing medications, will not eat food. She has her eyes closed. Attempted to engage pt in gentle conversation. She is not answering questions, but nods her head when asked, "are you cold?" (nod yes), "do you want me to turn up your heater?" (nod yes). Explained to her that by refusing treatments and refusing to eat, she will not survive. Attempted to address code status, since she is refusing treatments, medications, food. She will not engage. Updated Antonia and nurse, Radha. Family arrives and I am updating them also. They are unhappy with Dr. Anne. Counseled on hospice services. Antonia, maritime guard, is with family now.
--- NOTE | 2019-05-19 14:33 | NUR ---
SHIFT SUMMARY PT LYING HF IN BED AT START OF SHIFT. VS AND CBG TAKEN AT START OF SHIFT. CBG 55. PT REFUSING TO DRINK OR EAT ANYTHING AT ALL; EVEN AT BS COULD NOT GET PT TO EAT OR DRINK ANYTHING. PT REFUSED BREAKFAST AND ALL AM MEDS. C/O NAUSEA AND HAD SM AMT OF EMESIS AFTER TURNING AND REPOSITIONING. ZOFRAN GIVEN. NO FURTHER C/O. DR HEATH NOTIFIED OF PT'S REFUSAL OF ALL CARE OFFERED. CBG [place]; RESULT 49. 1/2 AMP OF D50 GIVEN PER EMAR. CBG [place]; RESULT 72. PT CONTINUED TO REFUSE TO EAT. ASSISTED PT TO CHAIR/RECLINER AT , VIA LIFT AND 3P, FOR LUNCH AND P/T. PT REFUSED LUNCH AND P/T. PALLATIVE CARE NOTIFIED PER DR HEATH. GUS AND PALLATIVE IN TO SEE PT WHEN FAMILY OUT OF RM. PT CONSISTENTLY STATES THAT SHE WANTS TO TO EACH STAFF IN RM, BUT DENIES SAYING THAT WHEN FAMILY BACK IN RM AND ASK HER. FAMILY WANTED PT'S TRAY HEATED SO THEY COULD FEED HER; DONE BY GUS. FAMILY ATTEMPTED TO FEED PT LYING IN RECLINER, BUT SHE STARTED CHOKING. FAMILY CALLED IN THIS RN; ASSISTED PT UPRIGHT TO HELP CLEAR THROAT. PT CONTINUED TO COUGH AND EVENTUALLY CALMED. TRAY REMOVED FROM RM. FAMILY WANTING TO GIVE PT WATER WHILE CHOKING. DR HEATH NOTIFIED; NEW ORDERS RECEIVED TO HAVE PT NPO AND ORDER SPEECH EVAL. FAMILY INFORMED. CIRCUS TRAIN SUPERVISOR'S ASSISTING PT BACK INTO BED VIA LIFT. FAMILY LEAVING AT THIS TIME. CALL LT IN REACH.
--- NOTE | 2019-05-19 16:22 | NUR ---
Spiritual Care inital note: Asked to meet with Kim in attempt to complete POLST. iKm was alone in room and sleeping in recliner. She awakens briefly and appears to have trouble arousing. When asked why she has been refusing medication, food, PT, she does not respond. When asked if she feels like she's ready to , she opens eyes, looks at me, and nods 'yes.' I explained POLST form, but she was unable to stay awake. Family arrived. Pt denied refusing food and spouse began to feed her. Spouse says he will stay with her 15/01 to encourage medications, food, and PT. "She will do it for me." It was hard to tell if pt is mentally capable of grasping connection between food, meds and life. At other times, with family present, she appeard more lucid. She denied wanting to with family in room. Family asked several questions about PT, medications and hospice. At one point they asked me if "we" could force her to eat and take required medication. I informed them we could not. After explaining hospice several ways, each time more simply, they still could not grasp the fact that, even there, she could not be forced to eat and take medications--that hospice meant she was nearing end-of-life. Family is clear they do not want Kim to . They are non-latter-day. I will remain available.
--- NOTE | 2019-05-19 18:11 | NUR ---
FAMILY RETURNED TO RM OFF AND ON FOR REMAINDER OF SHIFT. PT'S WANTING TO FEED PT AND GIVE HER PO MEDICATIONS. ATTEMPTED TO RE-EXPLAIN TO FAMILY THAT PT IS NPO UNTIL CLEARED BY SPEECH. DAUGHTER AND WANTING PT TO RECEIVE HER INSULIN SHE IS DIABETIC. ATTEMPTED TO EXPLAIN THAT WE WILL CONTINUE TO MONITOR PT'S CBG'S, BUT WE DO NOT WANT TO GIVE INSULIN IF NOT NEEDED, ESPECIALLY IF PT IS NOT EATING. EXPLAINED TO FAMILY THAT WE HAVE BEEN GIVING PT D50, "SUGAR WATER", TO MAINTAIN CBG'S AT THIS TIME, UNTIL SP EVAL AND DO NOT WANT CBG'S TO GO LOWER. FAMILY ARE VERY DIFFICULT TO EDUCATE. GUS AND PALLATIVE CARE RN WERE BOTH UNSUCCESSFUL. WANTS TO TAKE PT HOME, BUT DOES NOT WANT TO CARE FOR HER. PT IS NOT MOBILE AT THIS TIME AND DOES NOT ASSIST IN ANYWAY WITH CARE. CHRG RN NOTIFIED DR HEATH FOR CONTINUOUS DRIP FOR TONIGHT AND TO MONITOR CBG'S Q4 HRS. PT RESTING QUIETLY. NO S/SX OF DISTRESS NOTED AT THIS TIME. CALL LT IN REACH.
--- NOTE | 2019-05-19 23:11 | NUR ---
ACTIVITY/REFUSAL OF CARE: PATIENT AND ARE RESISTANT TO CARE, INTERMITTENTLY ALLOWING STAFF TO T&P PATIENT. AT THIS TIME T&P IS ALLOWED, PATIENT CONSISTANLY REFUSING ORAL CARE.
[2019-05-20 05:42] LABS: BASOPHILS ABSOLUTE AUTO 0.02 K/mm3 (0.00-0.23); BASOPHILS PERCENT AUTO 0 % (0-2); EOSINOPHILS ABSOLUTE AUTO 0.29 K/mm3 (0.00-0.68); EOSINOPHILS PERCENT AUTO 3 % (0-6); Hematocrit 29.4 % (33.0-51.0); Hemoglobin 9.3 g/dL (11.5-16.0); IMMATURE GRAN ABSOLUTE AUTO 0.07 K/mm3 (0.00-0.10); IMMATURE GRAN PERCENT AUTO 1 % (0-1); LYMPHOCYTES ABSOLUTE AUTO 1.57 K/mm3 (0.84-5.20); LYMPHOCYTES PERCENT AUTO 15 % (21-46); MONOCYTES ABSOLUTE AUTO 1.01 K/mm3 (0.16-1.47); MONOCYTES PERCENT AUTO 10 % (4-13); Mean Corpuscular HGB 30.6 pg (26.0-34.0); Mean Corpuscular HGB Conc 31.6 g/dL (31.5-36.5); Mean Corpuscular Volume 97 fL (80-100); Mean Platelet Volume 10.9 fL (9.1-12.4); NEUTROPHILS ABSOLUTE AUTO 7.55 K/mm3 (1.96-9.15); NEUTROPHILS PERCENT AUTO 72 % (41-73); Platelet Count 129 K/mm3 (150-400); RDW Coefficient Variation 20.3 % (11.7-14.2); RDW Standard Deviation 70.1 fL (35.1-46.3); Red Blood Cell Count 3.04 M/mm3 (3.80-5.20); White Blood Cell Count 10.51 K/mm3 (4.00-11.30)
[2019-05-20 06:01] LABS: Albumin, Blood 2.1 g/dL (3.4-5.0); Albumin/Globulin Ratio 0.6 (0.8-1.8); Bilirubin, Total 0.5 mg/dL (0.1-1.0); Bun/Creatinine Ratio 21.4 (12.0-20.0); Creatinine, Blood 1.96 mg/dL (0.40-1.00); Globulin, Blood 3.7 g/dL (2.2-4.0); Potassium, Blood 3.9 mmol/L (3.5-5.5); Total Protein, Blood 5.8 g/dL (6.4-8.2)
--- NOTE | 2019-05-20 07:18 | NUR ---
SHIFT SUMMARY: PATIENT HAS REMAINED NPO FOR SWALLOW EVAL TODAY, VS HAVE REMAINED STABLE. NO COMPLIANTS OF PAIN, BUT PATIENT DOES CRY OUT WITH T&P. PATIENT AND DO NOT UNDERSTAND WHY STAFF MUST REPOSITION PATIENT DURING THE NIGHT. EDUCATION IS GIVEN ON IMPORTANCE OF CONSISTANT REPOSITIONING TO PREVENT SKIN BREAKDOWN. ALL ORAL MEDICATIONS WERE HELD DUE TO BEING NPO. PATIENT REPORTED NAUSEA THIS AM AND WAS GIVEN ZOFRAN WITH GOOD EFFECT. REMAINS AT BEDSIDE PROVIDING EMOTIONAL SUPPORT.
--- NOTE | 2019-05-20 19:33 | NUR ---
SHIFT SUMMARY PT NPO AT START OF SHIFT, WAITING FOR SPEECH EVAL. DR HEATH IN TO SEE PT EARLY AND SPEECH TECH ALSO IN RIGHT AFTER DR HEATH COMPLETED ASSESSMENT. PT STARTED ON PUREE DIET WITH HONEY THICK LIQUIDS AND REQUIRED TO GET UP TO CHAIR FOR MEALS. PT GRUMPY AND RESISTENT, BUT ASSISTED TO CHAIR VIA LIFT TX. PT UP TO CHAIR FOR A COUPLE OF MEALS TODAY, SITTING THERE FOR SEVERAL HOURS. PT DOING A LITTLE BETTER TODAY; MORE AWAKE AND COMPLAINING MORE. PT AND FAMILY YELLING AT EACH OTHER IN FRUSTRATION D/T PT'S NONCOMPLIANCE WITH CARE. PT EATING BETTER TODAY, WHICH INCREASED CBG'S. IVF'S D/C'D AND MEDS CHANGED TO PO TO SEE IF PT WOULD COMPLY AND PROGRESS WITH CARE. DR HEATH UPDATED NEED FOR SCHNEIDER CATH TO REMAIN AT THIS TIME. FAMILY CALLED TO REPORT PT WANTING BED BURNS FOR BM; VERY LRG, SOFT BM. PT VERY UNCO-OP WITH TURNING WHEN CLEANING AND ALSO WITH BED BATH, MAKING IT VERY DIFFICULT TO PROVIDE NEEDED CARE FOR HER. GETTING UPSET WITH PT FOR NOT CO-OP WITH STAFF AND CARE NEEDED. PT RESTING QUIETLY AT THIS TIME. CALL LT IN REACH. FAMILY AT BS.
[2019-05-21 06:16] LABS: Free Thyroxine 1.54 ng/dL (0.70-1.60); Triiodothyronine, Free 3.55 pg/mL (2.18-3.98)
--- NOTE | 2019-05-21 06:29 | NUR ---
SHIFT SUMMARY: PATIENT IS A&OX4, ABLE TO MAKE NEEDS KNOWN, CONTINUES TO BE RESISTANT TO CARE AND T&P IS COOPERATIVE MOST OF THE TIME. REFUSED T&P TWICE THIS SHIFT. PATIENT WAS ABLE TO TAKE PO MEDICATIONS IN APPLE SAUCE WITH HONEY THICKENED LIQUIDS WITHOUT COUGHING. IS AT BEDSIDE PROVIDING EMOTIONAL SUPPORT TO PATIENT.
[2019-05-21] MEDS ORDERED: DOCU100 PO (10:28)
[2019-05-21] MEDS ORDERED: Bumetanide1 MG PO (10:28)
[2019-05-21] MEDS ORDERED: FLUC150A PO (10:29)
[2019-05-21] MEDS ORDERED: Q-Tussin100 MG/5 M PO (10:30)
[2019-05-21] MEDS ORDERED: HYDCOR10 PO (10:32)
[2019-05-21] MEDS ORDERED: HUMALOG KW200 UNIT/1 SC ×2 (10:35→10:36)
[2019-05-21] MEDS ORDERED: EUTHYROX100 MCG PO (10:37)
[2019-05-21] MEDS ORDERED: MIRALAX17 GM PO (10:38)
[2019-05-21] MEDS ORDERED: LIOT5 PO (10:38)
[2019-05-21] MEDS ORDERED: Florastor250 MG PO (10:39)
[2019-05-21] MEDS ORDERED: SENN187 PO (10:40)
--- NOTE | 2019-05-21 12:05 | NUR ---
PT WAS DCD TO [facility]. REPORT WAS CALLED TO JESSICA RAINEY. ALL PERSONAL BELONGINGS SENT WITH . PT STABLE UPON DC.
== END 2019-05-21 12:05 | DRG 91 ==
LOC: ER 13:24 → PCU 16:13 → MEDS 05-15 11:00 → ENPENDDIS 05-21 10:30 → MEDS 05-21 12:05
PROVIDERS: Emergency Medicine; Family Medicine; Hospitalist; Internal Medicine; Internal Medicine Endocrinology, Diabetes & Metabolism; Pharmacist; ADMIT Internal Medicine
DX: G92 Toxic encephalopathy (principal); J18.9 Pneumonia, unspecified organism; E27.3 Drug-induced adrenocortical insufficiency; N30.01 Acute cystitis with hematuria; Z68.43 Body mass index [BMI] 50.0-59.9, adult; N18.4 Chronic kidney disease, stage 4 (severe); E03.8 Other specified hypothyroidism; Z51.5 Encounter for palliative care; Y95 Nosocomial condition; R60.1 Generalized edema; E11.22 Type 2 diabetes mellitus with diabetic chronic kidney disease; I12.9 Hypertensive chronic kidney disease with stage 1 through stage 4 chronic kidney disease, or unspecified chronic kidney disease; Z79.4 Long term (current) use of insulin; E87.6 Hypokalemia; R53.81 Other malaise; C43.70 Malignant melanoma of unspecified lower limb, including hip; R62.7 Adult failure to thrive; B96.5 Pseudomonas (aeruginosa) (mallei) (pseudomallei) as the cause of diseases classified elsewhere; E11.40 Type 2 diabetes mellitus with diabetic neuropathy, unspecified; E66.09 Other obesity due to excess calories
CPT/HCPCS: 36415; 36600; 51702; 71045; 74018; 80048; 80053; 80170; 80202; 80400; 81001; 82024; 82533; 82803; 82947; 83690; 83735; 83880; 84100; 84439; 84443; 84481; 84484; 85025; 85027; 87086; 92610; 93005; 93010; 93306; 94640; 94760; 94762; 96365; 96375; 97110; 97162; 97530; 99285-25; J1100; J1580; J1642; J1650; J1720; J1815; J1940; J2270; J2405; J3370; J3480; J7040; J7042; J7050; J7799; P9046; P9612

== ENCOUNTER 2019-07-20 11:30 | Emergency (ER) | payer MEDICARE, OTHER ==
[~2019-07-20] VITALS: Ht 160 cm; Wt 99.8 kg
[~2019-07-20 11:30] MED LIST changes: +DOCU100 PO; +EUTHYROX100 MCG PO; +FURO40; +Florastor250 MG PO; +HUMALOG KW200 UNIT/1 SC; +HYDCOR10 PO; +LIOT5 PO; +MIRALAX17 GM PO; +Q-Tussin100 MG/5 M PO
[2019-07-20] MEDS ORDERED: Percocet 5-3251 EACH PO (13:41)
== END 2019-07-20 13:50 | disposition home or self-care (01) ==
LOC: ER 11:30
DX: M54.31 Sciatica, right side (principal); I12.9 Hypertensive chronic kidney disease with stage 1 through stage 4 chronic kidney disease, or unspecified chronic kidney disease; E11.22 Type 2 diabetes mellitus with diabetic chronic kidney disease; N18.4 Chronic kidney disease, stage 4 (severe); E78.5 Hyperlipidemia, unspecified; F32.9 Major depressive disorder, single episode, unspecified; Z79.899 Other long term (current) drug therapy; Z79.01 Long term (current) use of anticoagulants; Z79.4 Long term (current) use of insulin
CPT/HCPCS: 96372; 99283-25; J1170

== ENCOUNTER 2019-08-21 00:07 | Day surgery (SDC) | payer MEDICARE, OTHER ==
[2019-08-21] MEDS ORDERED: Bumetanide1 MG PO (14:29)
[2019-08-21] MEDS ORDERED: HYDCOR10 PO (14:31)
[2019-08-21] MEDS ORDERED: INSULANPEN SC (14:32)
[2019-08-21] MEDS ORDERED: Synthroid200 MCG PO (14:35)
[2019-08-21] MEDS ORDERED: Culturelle1 CAP PO ×2 (14:36→14:37)
== END 2019-08-21 13:58 | disposition home or self-care (01) ==
LOC: ATC 00:07
DX: C43.70 Malignant melanoma of unspecified lower limb, including hip (principal); E03.9 Hypothyroidism, unspecified; E27.40 Unspecified adrenocortical insufficiency; E11.42 Type 2 diabetes mellitus with diabetic polyneuropathy; I10 Essential (primary) hypertension; E78.5 Hyperlipidemia, unspecified; Z79.899 Other long term (current) drug therapy; Z79.4 Long term (current) use of insulin; Z87.891 Personal history of nicotine dependence; E66.01 Morbid (severe) obesity due to excess calories; Z68.39 Body mass index [BMI] 39.0-39.9, adult; M54.31 Sciatica, right side
CPT/HCPCS: 96523; J1642

== ENCOUNTER 2019-10-09 00:03 | Day surgery (SDC) | payer MEDICARE, OTHER ==
[~2019-10-09 00:03] MED LIST changes: +Culturelle1 CAP PO; +Synthroid200 MCG PO
[2019-10-09 15:53] LABS: Albumin, Blood 2.9 g/dL (3.4-5.0); Anion Gap 4 mmol/L (6-16); Blood Urea Nitrogen 22 mg/dL (8-24); Bun/Creatinine Ratio 16.9 (12.0-20.0); CO2, Blood 28 mmol/L (21-32); Calcium, Blood 8.6 mg/dL (8.5-10.1); Chloride, Blood 107 mmol/L (98-108); Free Thyroxine 1.77 ng/dL (0.70-1.60); Glomerular Filtration Rate 42 (60-); Glucose, Blood 168 mg/dL (70-99); Phosphorus, Blood 3.2 mg/dL (2.5-4.9); Sodium, Blood 139 mmol/L (136-145)
[2019-10-09 15:55] LABS: Thyroid Stimulating Hormone 0.011 uIU/mL (0.360-4.800)
== END 2019-10-09 14:05 | disposition home or self-care (01) ==
LOC: ATC 00:03
PROVIDERS: Internal Medicine Endocrinology, Diabetes & Metabolism
DX: C43.70 Malignant melanoma of unspecified lower limb, including hip (principal); E03.9 Hypothyroidism, unspecified; E27.40 Unspecified adrenocortical insufficiency; E11.42 Type 2 diabetes mellitus with diabetic polyneuropathy; I10 Essential (primary) hypertension; E78.5 Hyperlipidemia, unspecified; M54.31 Sciatica, right side; E66.9 Obesity, unspecified; Z87.891 Personal history of nicotine dependence; Z79.4 Long term (current) use of insulin; Z79.899 Other long term (current) drug therapy; Z68.39 Body mass index [BMI] 39.0-39.9, adult
CPT/HCPCS: 36591; 80069; 84439; 84443; J1642

== ENCOUNTER 2019-12-11 00:05 | Day surgery (SDC) | payer OTHER ==
[2019-12-11 15:52] LABS: Albumin, Blood 3.3 g/dL (3.4-5.0); Anion Gap 5 mmol/L (6-16); Blood Urea Nitrogen 31 mg/dL (8-24); Bun/Creatinine Ratio 21.5 (12.0-20.0); CO2, Blood 28 mmol/L (21-32); Calcium, Blood 8.2 mg/dL (8.5-10.1); Chloride, Blood 104 mmol/L (98-108); Creatinine, Blood 1.44 mg/dL (0.40-1.00); Free Thyroxine 1.61 ng/dL (0.70-1.60); Glomerular Filtration Rate 38 (60-); Glucose, Blood 356 mg/dL (70-99); Phosphorus, Blood 2.9 mg/dL (2.5-4.9); Potassium, Blood 4.7 mmol/L (3.5-5.5); Sodium, Blood 137 mmol/L (136-145)
== END 2019-12-11 14:25 | disposition home or self-care (01) ==
LOC: ATC 00:05
PROVIDERS: Internal Medicine Endocrinology, Diabetes & Metabolism
DX: C43.70 Malignant melanoma of unspecified lower limb, including hip (principal); E03.9 Hypothyroidism, unspecified; E27.40 Unspecified adrenocortical insufficiency; E11.42 Type 2 diabetes mellitus with diabetic polyneuropathy; Z79.4 Long term (current) use of insulin; Z79.899 Other long term (current) drug therapy; Z79.02 Long term (current) use of antithrombotics/antiplatelets; Z87.891 Personal history of nicotine dependence
CPT/HCPCS: 36591; 80069; 84439; 84443; J1642

== ENCOUNTER 2020-01-05 00:07 | Day surgery (SDC) | payer OTHER | END 2020-01-05 11:02 | disposition home or self-care (01) | LOC: ATC 00:07 | DX: E27.3 Drug-induced adrenocortical insufficiency (principal); E11.65 Type 2 diabetes mellitus with hyperglycemia; E03.9 Hypothyroidism, unspecified; E11.42 Type 2 diabetes mellitus with diabetic polyneuropathy; Z79.899 Other long term (current) drug therapy; Z79.4 Long term (current) use of insulin; I10 Essential (primary) hypertension; E78.5 Hyperlipidemia, unspecified; Z79.02 Long term (current) use of antithrombotics/antiplatelets; Z87.891 Personal history of nicotine dependence; E66.01 Morbid (severe) obesity due to excess calories; Z68.39 Body mass index [BMI] 39.0-39.9, adult; R09.02 Hypoxemia; M54.31 Sciatica, right side | CPT/HCPCS: 36591; 80400; 82533; 96372; J0834; J1642 ==

== ENCOUNTER 2020-02-05 00:11 | Day surgery (SDC) | payer OTHER | END 2020-02-05 15:28 | disposition home or self-care (01) | LOC: ATC 00:11 | DX: E11.65 Type 2 diabetes mellitus with hyperglycemia (principal); E03.9 Hypothyroidism, unspecified; E27.40 Unspecified adrenocortical insufficiency; E11.42 Type 2 diabetes mellitus with diabetic polyneuropathy; E78.5 Hyperlipidemia, unspecified; E66.01 Morbid (severe) obesity due to excess calories; R09.02 Hypoxemia; M54.31 Sciatica, right side; Z79.4 Long term (current) use of insulin; Z87.891 Personal history of nicotine dependence; Z68.39 Body mass index [BMI] 39.0-39.9, adult | CPT/HCPCS: 96523; J1642 ==

== ENCOUNTER 2020-04-12 00:16 | Day surgery (SDC) | payer OTHER ==
[~2020-04-12 00:16] MED LIST changes: +ACIDOPHILUS1 EAC1; +BASAGLAR K100 UNIT/1 SC; +HUMALOG KW200 UNIT/2; +NYSTATIN-TRIAMC15 GM TOP
[2020-04-12 15:31] LABS: Albumin, Blood 2.9 g/dL (3.4-5.0); Bilirubin, Total 0.3 mg/dL (0.1-1.0); Bun/Creatinine Ratio 14.6 (12.0-20.0); Calcium, Blood 8.7 mg/dL (8.5-10.1); Creatinine, Blood 1.44 mg/dL (0.40-1.00); Free Thyroxine 1.74 ng/dL (0.70-1.60); Globulin, Blood 2.8 g/dL (2.2-4.0); Total Protein, Blood 5.7 g/dL (6.4-8.2)
[2020-04-12 15:35] LABS: Thyroid Stimulating Hormone 0.081 uIU/mL (0.360-4.800)
== END 2020-04-12 15:05 | disposition home or self-care (01) ==
LOC: ATC 00:16
PROVIDERS: Internal Medicine Endocrinology, Diabetes & Metabolism
DX: C43.72 Malignant melanoma of left lower limb, including hip (principal); E03.9 Hypothyroidism, unspecified; E27.40 Unspecified adrenocortical insufficiency; E11.42 Type 2 diabetes mellitus with diabetic polyneuropathy; Z79.4 Long term (current) use of insulin; Z79.899 Other long term (current) drug therapy; E78.5 Hyperlipidemia, unspecified; I10 Essential (primary) hypertension; M54.31 Sciatica, right side
CPT/HCPCS: 36591; 80053; 83036; 84439; 84443; J1642

== ENCOUNTER 2020-06-07 00:06 | Day surgery (SDC) | payer OTHER ==
[2020-06-07] MEDS ORDERED: LOSA25 PO (09:18)
[2020-06-07 10:05] LABS: LDL/HDL RATIO 0.9; Very Low Density Lipoprot Chol 24 mg/dL (6-32)
[2020-06-07 10:06] LABS: CHOL/HDL RATIO 2.2; Cholesterol 174 mg/dL (50-200); HDL Cholesterol 80 mg/dL (>39); Low Density Lipoprotein Chol 70 mg/dL (0-110); Triglycerides 121 mg/dL (30-160)
== END 2020-06-07 09:12 | disposition home or self-care (01) ==
LOC: ATC 00:06
PROVIDERS: Hospitalist
DX: E03.2 Hypothyroidism due to medicaments and other exogenous substances (principal); E27.40 Unspecified adrenocortical insufficiency; E78.5 Hyperlipidemia, unspecified; E11.65 Type 2 diabetes mellitus with hyperglycemia; C43.72 Malignant melanoma of left lower limb, including hip; E11.42 Type 2 diabetes mellitus with diabetic polyneuropathy; I12.9 Hypertensive chronic kidney disease with stage 1 through stage 4 chronic kidney disease, or unspecified chronic kidney disease; E11.22 Type 2 diabetes mellitus with diabetic chronic kidney disease; N18.30 Chronic kidney disease, stage 3 unspecified; M54.41 Lumbago with sciatica, right side; G89.29 Other chronic pain; E66.9 Obesity, unspecified; Z68.41 Body mass index [BMI] 40.0-44.9, adult; Z79.02 Long term (current) use of antithrombotics/antiplatelets; Z79.4 Long term (current) use of insulin; Z79.899 Other long term (current) drug therapy; Z86.73 Personal history of transient ischemic attack (TIA), and cerebral infarction without residual deficits; Z87.891 Personal history of nicotine dependence
CPT/HCPCS: 36591; 80061; 84439; 84443; J1642

== ENCOUNTER 2020-07-05 00:26 | Day surgery (SDC) | payer OTHER | END 2020-07-05 14:46 | disposition home or self-care (01) | LOC: ATC 00:26 | DX: Z45.2 Encounter for adjustment and management of vascular access device (principal); E78.5 Hyperlipidemia, unspecified; C43.72 Malignant melanoma of left lower limb, including hip; E27.40 Unspecified adrenocortical insufficiency; E11.65 Type 2 diabetes mellitus with hyperglycemia; E11.42 Type 2 diabetes mellitus with diabetic polyneuropathy; E27.3 Drug-induced adrenocortical insufficiency; E03.9 Hypothyroidism, unspecified; R60.9 Edema, unspecified; I10 Essential (primary) hypertension; G89.29 Other chronic pain; M54.9 Dorsalgia, unspecified; M54.31 Sciatica, right side; Z87.891 Personal history of nicotine dependence; Z79.02 Long term (current) use of antithrombotics/antiplatelets; Z79.899 Other long term (current) drug therapy; Z79.4 Long term (current) use of insulin; Z79.01 Long term (current) use of anticoagulants | CPT/HCPCS: 96523; J1642 ==

== ENCOUNTER 2020-07-29 00:11 | Day surgery (SDC) | payer OTHER ==
[2020-07-29] MEDS ORDERED: Hydrocortisone5 MG PO (16:21)
[2020-07-29] MEDS ORDERED: LOSA25 PO (16:22)
[2020-07-29 16:54] LABS: Albumin, Blood 3.3 g/dL (3.4-5.0); Albumin/Globulin Ratio 1.2 (0.8-1.8); Bilirubin, Total 0.3 mg/dL (0.1-1.0); Bun/Creatinine Ratio 14.7 (12.0-20.0); Calcium, Blood 8.7 mg/dL (8.5-10.1); Creatinine, Blood 1.63 mg/dL (0.40-1.00); Free Thyroxine 1.32 ng/dL (0.70-1.60); Globulin, Blood 2.7 g/dL (2.2-4.0); Potassium, Blood 4.1 mmol/L (3.5-5.5)
[2020-07-29 16:57] LABS: Thyroid Stimulating Hormone 2.17 uIU/mL (0.360-4.800)
== END 2020-07-29 16:10 | disposition home or self-care (01) ==
LOC: ATC 00:11
PROVIDERS: Internal Medicine Endocrinology, Diabetes & Metabolism
DX: Z45.2 Encounter for adjustment and management of vascular access device (principal); E03.9 Hypothyroidism, unspecified; E27.40 Unspecified adrenocortical insufficiency; E11.42 Type 2 diabetes mellitus with diabetic polyneuropathy; E78.5 Hyperlipidemia, unspecified; I10 Essential (primary) hypertension; E66.01 Morbid (severe) obesity due to excess calories; Z79.4 Long term (current) use of insulin; Z85.820 Personal history of malignant melanoma of skin; Z86.718 Personal history of other venous thrombosis and embolism; Z87.891 Personal history of nicotine dependence; Z68.39 Body mass index [BMI] 39.0-39.9, adult
CPT/HCPCS: 36591; 80053; 83036; 84439; 84443; J1642

== ENCOUNTER 2020-08-26 00:05 | Day surgery (SDC) | payer OTHER ==
[~2020-08-26 00:05] MED LIST changes: +Hydrocortisone5 MG PO
== END 2020-08-26 14:43 | disposition home or self-care (01) ==
LOC: ATC 00:05
DX: C43.72 Malignant melanoma of left lower limb, including hip (principal); E11.42 Type 2 diabetes mellitus with diabetic polyneuropathy; E11.59 Type 2 diabetes mellitus with other circulatory complications; E11.65 Type 2 diabetes mellitus with hyperglycemia; E78.5 Hyperlipidemia, unspecified; E03.2 Hypothyroidism due to medicaments and other exogenous substances; E27.40 Unspecified adrenocortical insufficiency; I12.9 Hypertensive chronic kidney disease with stage 1 through stage 4 chronic kidney disease, or unspecified chronic kidney disease; N18.32 Chronic kidney disease, stage 3b; N25.81 Secondary hyperparathyroidism of renal origin; E66.01 Morbid (severe) obesity due to excess calories; Z68.41 Body mass index [BMI] 40.0-44.9, adult; Z87.891 Personal history of nicotine dependence; Z79.4 Long term (current) use of insulin; Z85.820 Personal history of malignant melanoma of skin
CPT/HCPCS: 96523; J1642

== ENCOUNTER 2020-10-07 00:09 | Day surgery (SDC) | payer OTHER | END 2020-10-07 13:55 | disposition home or self-care (01) | LOC: ATC 00:09 | DX: C43.72 Malignant melanoma of left lower limb, including hip (principal); E11.65 Type 2 diabetes mellitus with hyperglycemia; E03.2 Hypothyroidism due to medicaments and other exogenous substances; E11.42 Type 2 diabetes mellitus with diabetic polyneuropathy; E11.22 Type 2 diabetes mellitus with diabetic chronic kidney disease; I12.9 Hypertensive chronic kidney disease with stage 1 through stage 4 chronic kidney disease, or unspecified chronic kidney disease; N18.32 Chronic kidney disease, stage 3b; Z79.4 Long term (current) use of insulin; Z87.891 Personal history of nicotine dependence | CPT/HCPCS: 96523; J1642 ==

== ENCOUNTER 2020-10-28 02:10 | Day surgery (SDC) | payer OTHER ==
[2020-10-28 13:08] LABS: Albumin, Blood 3.3 g/dL (3.4-5.0); Albumin/Globulin Ratio 1.1 (0.8-1.8); Bilirubin, Total 0.5 mg/dL (0.1-1.0); Bun/Creatinine Ratio 13.3 (12.0-20.0); Creatinine, Blood 1.66 mg/dL (0.40-1.00); Globulin, Blood 2.9 g/dL (2.2-4.0); Potassium, Blood 3.8 mmol/L (3.5-5.5); Total Protein, Blood 6.2 g/dL (6.4-8.2)
== END 2020-10-28 12:05 | disposition home or self-care (01) ==
LOC: ATC 02:10
PROVIDERS: Internal Medicine Endocrinology, Diabetes & Metabolism
DX: E11.65 Type 2 diabetes mellitus with hyperglycemia (principal); E03.9 Hypothyroidism, unspecified; E78.5 Hyperlipidemia, unspecified; E11.42 Type 2 diabetes mellitus with diabetic polyneuropathy; E11.59 Type 2 diabetes mellitus with other circulatory complications; E27.40 Unspecified adrenocortical insufficiency; I12.9 Hypertensive chronic kidney disease with stage 1 through stage 4 chronic kidney disease, or unspecified chronic kidney disease; N18.32 Chronic kidney disease, stage 3b; E11.22 Type 2 diabetes mellitus with diabetic chronic kidney disease; N25.81 Secondary hyperparathyroidism of renal origin; E66.01 Morbid (severe) obesity due to excess calories; Z68.41 Body mass index [BMI] 40.0-44.9, adult; Z85.820 Personal history of malignant melanoma of skin; Z79.4 Long term (current) use of insulin; Z87.891 Personal history of nicotine dependence
CPT/HCPCS: 36591; 80053; 83036; J1642

== ENCOUNTER 2020-12-16 00:21 | Day surgery (SDC) | payer OTHER | END 2020-12-16 13:43 | disposition home or self-care (01) | LOC: ATC 00:21 | DX: C43.72 Malignant melanoma of left lower limb, including hip (principal); E11.42 Type 2 diabetes mellitus with diabetic polyneuropathy; E78.5 Hyperlipidemia, unspecified; E11.59 Type 2 diabetes mellitus with other circulatory complications; E03.9 Hypothyroidism, unspecified; I12.9 Hypertensive chronic kidney disease with stage 1 through stage 4 chronic kidney disease, or unspecified chronic kidney disease; N18.32 Chronic kidney disease, stage 3b; N25.81 Secondary hyperparathyroidism of renal origin; E66.01 Morbid (severe) obesity due to excess calories; Z79.4 Long term (current) use of insulin; Z79.02 Long term (current) use of antithrombotics/antiplatelets; Z87.891 Personal history of nicotine dependence; Z68.41 Body mass index [BMI] 40.0-44.9, adult | CPT/HCPCS: 96523; J1642 ==

== ENCOUNTER → 2021-01-17 | Outpatient (CLI) | payer OTHER | END | disposition home or self-care (01) | LOC: LAB SHORT 08:26 | DX: C43.72 Malignant melanoma of left lower limb, including hip (principal) | CPT/HCPCS: 88305 ==

== ENCOUNTER 2021-02-03 19:37 | Observation (INO) | payer OTHER ==
[~2021-02-03] VITALS: Ht 162.6 cm; Wt 131.5 kg
[~2021-02-03 19:37] MED LIST changes: -ACIDOPHILUS1 EAC1; +ACIDOPHILUS1 EAC1 PO; +LEVSOD137 PO; -Synthroid200 MCG PO
[2021-02-03 21:40] LABS: BASOPHILS ABSOLUTE AUTO 0.04 K/mm3 (0.00-0.23); BASOPHILS PERCENT AUTO 0 % (0-2); EOSINOPHILS PERCENT AUTO 1 % (0-6); Hematocrit 47.6 % (33.0-51.0); Hemoglobin 15.2 g/dL (11.5-16.0); IMMATURE GRAN ABSOLUTE AUTO 0.11 K/mm3 (0.00-0.10); IMMATURE GRAN PERCENT AUTO 1 % (0-1); LYMPHOCYTES ABSOLUTE AUTO 2.02 K/mm3 (0.84-5.20); LYMPHOCYTES PERCENT AUTO 10 % (21-46); MONOCYTES ABSOLUTE AUTO 1.37 K/mm3 (0.16-1.47); MONOCYTES PERCENT AUTO 7 % (4-13); Mean Corpuscular HGB 30.2 pg (26.0-34.0); Mean Corpuscular HGB Conc 31.9 g/dL (31.5-36.5); Mean Corpuscular Volume 95 fL (80-100); NEUTROPHILS ABSOLUTE AUTO 16.12 K/mm3 (1.96-9.15); NEUTROPHILS PERCENT AUTO 81 % (41-73); RDW Coefficient Variation 14.9 % (11.7-14.2); Red Blood Cell Count 5.03 M/mm3 (3.80-5.20); White Blood Cell Count 19.86 K/mm3 (4.00-11.30)
[2021-02-03 21:42] LABS: Mean Platelet Volume 10.4 fL (9.1-12.4); Platelet Count 196 K/mm3 (150-400)
[2021-02-03 22:00] LABS: Albumin, Blood 2.8 g/dL (3.4-5.0); Bilirubin, Total 0.7 mg/dL (0.1-1.0); Bun/Creatinine Ratio 10.7 (12.0-20.0); Calcium, Blood 8.5 mg/dL (8.5-10.1); Creatinine, Blood 2.33 mg/dL (0.40-1.00); Globulin, Blood 2.8 g/dL (2.2-4.0); Potassium, Blood 4.1 mmol/L (3.5-5.5); Total Protein, Blood 5.6 g/dL (6.4-8.2)
[2021-02-04 06:50] LABS: Bun/Creatinine Ratio 11.2 (12.0-20.0); Calcium, Blood 8.1 mg/dL (8.5-10.1); Creatinine, Blood 2.58 mg/dL (0.40-1.00); Potassium, Blood 5.2 mmol/L (3.5-5.5)
[2021-02-04] MEDS ORDERED: NEURONTIN300 MG PO (07:28)
[2021-02-04] MEDS ORDERED: PLAVIX75 MG PO (07:29)
[2021-02-04] MEDS ORDERED: INSULANI SC (07:29)
[2021-02-04] MEDS ORDERED: NOVOLOG100 UNIT/2 SC (07:30)
[2021-02-05 05:30] LABS: BASOPHILS ABSOLUTE AUTO 0.03 K/mm3 (0.00-0.23); BASOPHILS PERCENT AUTO 0 % (0-2); EOSINOPHILS ABSOLUTE AUTO 0.02 K/mm3 (0.00-0.68); EOSINOPHILS PERCENT AUTO 0 % (0-6); Hematocrit 37.9 % (33.0-51.0); Hemoglobin 12.3 g/dL (11.5-16.0); IMMATURE GRAN ABSOLUTE AUTO 0.18 K/mm3 (0.00-0.10); IMMATURE GRAN PERCENT AUTO 1 % (0-1); LYMPHOCYTES ABSOLUTE AUTO 0.75 K/mm3 (0.84-5.20); LYMPHOCYTES PERCENT AUTO 4 % (21-46); MONOCYTES ABSOLUTE AUTO 0.66 K/mm3 (0.16-1.47); MONOCYTES PERCENT AUTO 3 % (4-13); Mean Corpuscular HGB 30.7 pg (26.0-34.0); Mean Corpuscular HGB Conc 32.5 g/dL (31.5-36.5); Mean Corpuscular Volume 95 fL (80-100); Mean Platelet Volume 10.6 fL (9.1-12.4); NEUTROPHILS ABSOLUTE AUTO 17.53 K/mm3 (1.96-9.15); NEUTROPHILS PERCENT AUTO 92 % (41-73); Platelet Count 179 K/mm3 (150-400); RDW Coefficient Variation 14.4 % (11.7-14.2); RDW Standard Deviation 50.3 fL (35.1-46.3); Red Blood Cell Count 4.01 M/mm3 (3.80-5.20); White Blood Cell Count 19.17 K/mm3 (4.00-11.30)
[2021-02-05 06:02] LABS: Albumin, Blood 2.7 g/dL (3.4-5.0); Anion Gap 9 mmol/L (6-16); Blood Urea Nitrogen 36 mg/dL (8-24); Bun/Creatinine Ratio 17.5 (12.0-20.0); CO2, Blood 23 mmol/L (21-32); Calcium, Blood 7.9 mg/dL (8.5-10.1); Chloride, Blood 104 mmol/L (98-108); Creatinine, Blood 2.06 mg/dL (0.40-1.00); Glomerular Filtration Rate 23 (60-); Glucose, Blood 351 mg/dL (70-99); Phosphorus, Blood 3.4 mg/dL (2.5-4.9); Potassium, Blood 4.8 mmol/L (3.5-5.5); Sodium, Blood 136 mmol/L (136-145)
== END 2021-02-05 12:33 | disposition home or self-care (01) ==
LOC: ER 19:37 → ERHOLD 19:38 → ER 02-04 00:39 → ERHOLD 02-04 00:39 → MEDS 02-04 11:40 → ERHOLD 02-04 11:40 → MEDS 02-04 11:40
PROVIDERS: Emergency Medicine; Family Medicine; ADMIT Internal Medicine
DX: T88.6XXA Anaphylactic reaction due to adverse effect of correct drug or medicament properly administered, initial encounter (principal); T50.8X5A Adverse effect of diagnostic agents, initial encounter; I12.9 Hypertensive chronic kidney disease with stage 1 through stage 4 chronic kidney disease, or unspecified chronic kidney disease; E11.22 Type 2 diabetes mellitus with diabetic chronic kidney disease; N18.4 Chronic kidney disease, stage 4 (severe); E78.5 Hyperlipidemia, unspecified; I95.9 Hypotension, unspecified; E27.3 Drug-induced adrenocortical insufficiency; E11.40 Type 2 diabetes mellitus with diabetic neuropathy, unspecified; D72.829 Elevated white blood cell count, unspecified; E03.9 Hypothyroidism, unspecified; C43.9 Malignant melanoma of skin, unspecified; C78.01 Secondary malignant neoplasm of right lung; F32.9 Major depressive disorder, single episode, unspecified; E66.9 Obesity, unspecified; Z86.718 Personal history of other venous thrombosis and embolism; Z85.820 Personal history of malignant melanoma of skin; Z87.440 Personal history of urinary (tract) infections; Z87.891 Personal history of nicotine dependence; Z79.4 Long term (current) use of insulin; Y84.2 Radiological procedure and radiotherapy as the cause of abnormal reaction of the patient, or of later complication, without mention of misadventure at the time of the procedure; Z68.42 Body mass index [BMI] 45.0-49.9, adult; Z79.52 Long term (current) use of systemic steroids
CPT/HCPCS: 36415; 71045; 80048; 80053; 80069; 82947; 84443; 85025; 93005; 93010; 96361; 96372-59; 96374; 96375; 96376; 99285-25; A9270; G0378; J0171; J1200; J1642; J1650; J2930; J7030

== ENCOUNTER 2021-02-07 18:47 | Observation (INO) | payer OTHER ==
[~2021-02-07] VITALS: Ht 162.6 cm; Wt 108.9 kg
[~2021-02-07 18:47] MED LIST changes: +INSULANI SC; +NEURONTIN300 MG PO; +NOVOLOG100 UNIT/2 SC; +PLAVIX75 MG PO
[2021-02-07] MEDS ORDERED: CLOP75 PO (18:55)
[2021-02-07] MEDS ORDERED: FAMO20 PO (18:55)
[2021-02-07] MEDS ORDERED: NOVOLOG FL100 UNIT/2 SC (18:56)
[2021-02-07] MEDS ORDERED: GABA300 PO (18:56)
[2021-02-07] MEDS ORDERED: Cortef20 MG PO (18:56)
[2021-02-07] MEDS ORDERED: LACT PO (18:57)
[2021-02-07] MEDS ORDERED: NYSTATIN-TRIAMC15 GM TOP (18:57)
[2021-02-07] MEDS ORDERED: INSULANI SC (18:57)
[2021-02-07] MEDS ORDERED: LEVOTHYROXINE PO (18:57)
[2021-02-07 19:45] LABS: BASOPHILS ABSOLUTE AUTO 0.11 K/mm3 (0.00-0.23); BASOPHILS PERCENT AUTO 1 % (0-2); EOSINOPHILS PERCENT AUTO 5 % (0-6); Hematocrit 42.1 % (33.0-51.0); Hemoglobin 13.5 g/dL (11.5-16.0); IMMATURE GRAN PERCENT AUTO 2 % (0-1); LYMPHOCYTES ABSOLUTE AUTO 3.55 K/mm3 (0.84-5.20); LYMPHOCYTES PERCENT AUTO 20 % (21-46); MONOCYTES ABSOLUTE AUTO 1.25 K/mm3 (0.16-1.47); MONOCYTES PERCENT AUTO 7 % (4-13); Mean Corpuscular HGB 30.2 pg (26.0-34.0); Mean Corpuscular HGB Conc 32.1 g/dL (31.5-36.5); Mean Corpuscular Volume 94 fL (80-100); Mean Platelet Volume 11.1 fL (9.1-12.4); NEUTROPHILS ABSOLUTE AUTO 11.63 K/mm3 (1.96-9.15); NEUTROPHILS PERCENT AUTO 66 % (41-73); Platelet Count 196 K/mm3 (150-400); RDW Coefficient Variation 14.5 % (11.7-14.2); RDW Standard Deviation 50.2 fL (35.1-46.3); Red Blood Cell Count 4.47 M/mm3 (3.80-5.20); White Blood Cell Count 17.74 K/mm3 (4.00-11.30)
[2021-02-07 20:00] LABS: Albumin, Blood 2.5 g/dL (3.4-5.0); Bilirubin, Total 0.7 mg/dL (0.1-1.0); Bun/Creatinine Ratio 12.7 (12.0-20.0); Calcium, Blood 7.8 mg/dL (8.5-10.1); Creatine Kinase MB 1.4 ng/mL (0.0-3.6); Creatine Kinase MB Index 0.8 (0.0-4.0); Creatinine, Blood 1.73 mg/dL (0.40-1.00); Globulin, Blood 2.6 g/dL (2.2-4.0); Potassium, Blood 3.5 mmol/L (3.5-5.5); Total Protein, Blood 5.1 g/dL (6.4-8.2)
[2021-02-07 20:03] LABS: C-Reactive Protein, High Sens. 91.1 mg/L (0.000-3.000)
[2021-02-07 20:47] LABS: International Normalized Ratio 1.06; Prothrombin Time Results 11.4 Sec (9.7-11.5)
[2021-02-07] MEDS ORDERED: HYDHCL25 PO (21:32)
[2021-02-07] MEDS ORDERED: OXYC5 PO (21:33)
[2021-02-07] MEDS ORDERED: LOSARTAN POTASS25 M2 PO (21:37)
[2021-02-08 06:34] LABS: Bun/Creatinine Ratio 15.9 (12.0-20.0); Calcium, Blood 7.3 mg/dL (8.5-10.1); Creatinine, Blood 1.64 mg/dL (0.40-1.00); Potassium, Blood 5.3 mmol/L (3.5-5.5)
== END 2021-02-08 11:31 | disposition home or self-care (01) ==
LOC: ER 18:47 → ERHOLD 18:48
PROVIDERS: Physician Assistant; ADMIT Internal Medicine
DX: L51.1 Stevens-Johnson syndrome (principal); C79.9 Secondary malignant neoplasm of unspecified site; E27.3 Drug-induced adrenocortical insufficiency; I12.9 Hypertensive chronic kidney disease with stage 1 through stage 4 chronic kidney disease, or unspecified chronic kidney disease; N18.4 Chronic kidney disease, stage 4 (severe); E11.22 Type 2 diabetes mellitus with diabetic chronic kidney disease; E03.9 Hypothyroidism, unspecified; E66.01 Morbid (severe) obesity due to excess calories; E78.5 Hyperlipidemia, unspecified; Z86.718 Personal history of other venous thrombosis and embolism; Z87.891 Personal history of nicotine dependence; Z91.041 Radiographic dye allergy status; Z79.4 Long term (current) use of insulin; Z79.899 Other long term (current) drug therapy
CPT/HCPCS: 36415; 80048; 80053; 82550; 82553; 82947; 85025; 85610; 85651; 85730; 86141; 96361; 96372; 96374; 96375; 96376; 99284-25; A9270; G0378; J1200; J1650; J2270; J2930; J7030

== ENCOUNTER 2021-02-10 15:18 | Emergency (ER) | payer OTHER ==
[~2021-02-10] VITALS: Ht 162.6 cm; Wt 129.3 kg
[~2021-02-10 15:18] MED LIST changes: +Cortef20 MG PO; +HYDHCL25 PO; +LACT PO; +LEVOTHYROXINE PO; +LOSARTAN POTASS25 M2 PO; +NOVOLOG FL100 UNIT/2 SC; +OXYC5 PO
[2021-02-10 17:16] LABS: Hematocrit 36.1 % (33.0-51.0); Hemoglobin 11.6 g/dL (11.5-16.0); Mean Corpuscular HGB 30.1 pg (26.0-34.0); Mean Corpuscular HGB Conc 32.1 g/dL (31.5-36.5); Mean Corpuscular Volume 94 fL (80-100); Mean Platelet Volume 10.4 fL (9.1-12.4); Platelet Count 192 K/mm3 (150-400); RDW Coefficient Variation 14.7 % (11.7-14.2); RDW Standard Deviation 50.6 fL (35.1-46.3); Red Blood Cell Count 3.85 M/mm3 (3.80-5.20); White Blood Cell Count 12.99 K/mm3 (4.00-11.30)
[2021-02-10] MEDS ORDERED: CEFD300 PO ×2 (17:24→19:21)
[2021-02-10] MEDS ORDERED: Prednisone20 MG PO (17:24)
[2021-02-10 17:36] LABS: Albumin, Blood 2.6 g/dL (3.4-5.0); Albumin/Globulin Ratio 1.1 (0.8-1.8); Bilirubin, Total 0.4 mg/dL (0.1-1.0); Calcium, Blood 7.8 mg/dL (8.5-10.1); Creatinine, Blood 1.87 mg/dL (0.40-1.00); Globulin, Blood 2.4 g/dL (2.2-4.0); Potassium, Blood 3.6 mmol/L (3.5-5.5)
[2021-02-10 17:37] LABS: BAND PERCENT MAN 4 % (0-8); BASOPHILS PERCENT MAN 0 % (0-2); EOSINOPHILS ABSOLUTE MAN 0.12 K/mm3 (0.00-0.68); EOSINOPHILS PERCENT MAN 1 % (0-6); LYMPHOCYTES % ATYPICAL MANUAL 4 % (0-0); LYMPHOCYTES ABSOLUTE MAN 1.81 K/mm3 (0.84-5.20); LYMPHOCYTES PERCENT MAN 10 % (21-46); METAMYELOCYTE ABSOLUTE MAN 0.12 K/mm3 (0.00-0.00); METAMYELOCYTE PERCENT MAN 1 % (0-0); MONOCYTES ABSOLUTE MAN 0.77 K/mm3 (0.16-1.47); MONOCYTES PERCENT MAN 6 % (4-13); NEUTROPHILS ABSOLUTE MAN 10.13 K/mm3 (1.96-9.15); SEG NEUTROPHILS PERCENT MAN 74 % (41-73); TOTAL CELLS COUNTED 100
[2021-02-10] MEDS ORDERED: PLAVIX75 MG PO (19:13)
[2021-02-10] MEDS ORDERED: NEURONTIN300 MG PO (19:13)
[2021-02-10] MEDS ORDERED: LOSARTAN POTASS25 M2 PO (19:14)
[2021-02-10] MEDS ORDERED: VALP250 PO (19:18)
[2021-02-10] MEDS ORDERED: PRED20 PO (19:21)
== END 2021-02-10 21:32 | disposition home or self-care (01) ==
LOC: ER 15:18
PROVIDERS: Emergency Medicine
DX: N39.0 Urinary tract infection, site not specified (principal); I12.9 Hypertensive chronic kidney disease with stage 1 through stage 4 chronic kidney disease, or unspecified chronic kidney disease; N18.4 Chronic kidney disease, stage 4 (severe); E11.22 Type 2 diabetes mellitus with diabetic chronic kidney disease; I95.9 Hypotension, unspecified; C43.9 Malignant melanoma of skin, unspecified; Z91.041 Radiographic dye allergy status; Z79.4 Long term (current) use of insulin; Z79.890 Hormone replacement therapy; Z79.899 Other long term (current) drug therapy; Z53.29 Procedure and treatment not carried out because of patient's decision for other reasons
CPT/HCPCS: 80053; 83605; 85025; 87040; 93005; 93010; 96365; 96367; 99285-25; J0696; J1642; J1720; J7030